=== PATIENT | female | born 1955 | race Caucasian/White ===

== ENCOUNTER 2017-03-04 20:02 | Emergency (ER) | payer OTHER ==
[2017-03-04 20:21] VITALS: BP 153/80
--- NOTE | 2017-03-04 21:33 | EDM.PDOC ---
ED HPI GENERAL MEDICAL PROBLEM - General Chief Complaint: Lower Extremity Injury/Pain Stated Complaint: LEFT KNEE PAIN Time Seen by Provider: 03/04/17 20:43 Source of Information: Reports: Patient History Limitations: Reports: No Limitations - History of Present Illness INITIAL COMMENTS - FREE TEXT/NARRATIVE: 61-year-old female presents for evaluation treatment of swelling, increased warmth and pain to her left lower leg. She reports pain from her knee to her toes. She states that the symptoms started today. She reports yesterday she felt she may have been more short of breath then normal. She reports chronic shortness of breath is unsure if she has been experiencing a change in this. Patient is concerned that she may have a blood clot. She denies any recent travel such as long car rides or airplane rides. Current symptoms include swelling to the left lower leg, increased warmth and pain to the left lower leg. She reports the painful area is to the anterior left knee. Denies any chest pain, numbness or tingling to the left lower leg. No history of DVT or PEs. No new trauma to the left leg. Onset: Today (pain, swelling and redness to the left lower leg), Other ( yesterday unsure if shortness of breath worsened) Location: Reports: Lower Extremity, Left Left Knee Pain Score (Numeric/FACES): 9 - Related Data Allergies Allergy/AdvReac Type Severity Reaction Status Date / Time aspirin Allergy Unknown Cannot Verified 08/14/15 01:06 Remember codeine Allergy Unknown Cannot Verified 08/14/15 01:06 Remember latex Allergy Unknown Cannot Verified 08/14/15 01:06 Remember Penicillins Allergy Unknown Cannot Verified 08/14/15 01:06 Remember Sulfa (Sulfonamide Allergy Unknown Cannot Verified 08/14/15 01:06 Antibiotics) Remember omeprazole [From Prilosec] Allergy Anaphylactic Verified 08/14/15 01:06 Shock omeprazole magnesium Allergy Anaphylactic Verified 08/14/15 01:06 [From Prilosec] Shock venom-honey bee Allergy Anaphylactic Verified 08/14/15 01:06 [bee venom (honey bee)] Shock procaine HCl [From Novocain] AdvReac Nausea and Verified 08/14/15 01:06 Vomiting molds Allergy Unknown Cannot Uncoded 07/30/14 20:40 Remember downy Allergy Other Uncoded 08/14/15 01:06 Home Meds: Home Meds Montelukast [Singulair] 10 mg PO BEDTIME 11/04/14 [History] Albuterol Sulfate [Albuterol Sulfate HFA] 1 puff INH ASDIRECTED PRN 06/05/15 [ History] Furosemide [Lasix] 1 tab PO DAILY PRN 06/05/15 [History] Ranitidine [Zantac] 150 mg PO BID #60 tab 06/06/15 [Rx] atorvaSTATin [Lipitor] 20 mg PO BEDTIME 03/04/17 [History] cycloSPORINE [Restasis] 1 drop EYEBOTH BID 03/04/17 [History] Past Medical History Other Cardiovascular History: PDA closure at 18 mo of age Other Gastrointestinal History: Hx. 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 Social & Family History - Tobacco Use Smoking Status *Q: Unknown Ever Smoked Used Tobacco, but Quit: Yes Month Tobacco Last Used: 1981 Second Hand Smoke Exposure: No - Alcohol Use Days Per Week of Alcohol Use: 0 - Recreational Drug Use Recreational Drug Use: No Review of Systems - Review of Systems Review Of Systems: See Below Respiratory: Denies: Shortness of Breath (reports chronic shortness of breath, she is unsure if it is worse than normal) Cardiovascular: Denies: Chest Pain Musculoskeletal: Reports: Leg Pain (left), Other (reports swellling to the left lower leg) Skin: Reports: Erythema (left lower leg) Neurological: Denies: Numbness, Tingling ED EXAM, GENERAL - Physical Exam Exam: See Below Exam Limited By: No Limitations General Appearance: Alert, WD/WN, No Apparent Distress, Obese Respiratory/Chest: No Respiratory Distress, Lungs Clear, Normal Breath Sounds Cardiovascular: Normal Peripheral Pulses, Regular Rate, Rhythm, No Murmur Extremities: Normal Inspection, Normal Range of Motion, Limited Range of Motion (able to flex the left knee to about 90 degrees but unable to further flex due to pain; able to extend to abouit 160 degrees but unable to fully extend due to pain), Other (no swelling to the left lower leg appreciated). No: Joint Swelling, Oksana's Sign, Increased Warmth, Redness Neurological: Alert, Oriented, Normal Cognition Psychiatric: Normal Affect, Normal Mood Skin Exam: Warm, Dry, Normal Color Course - Vital Signs Last Recorded V/S: Last Vital Signs Temp 36.4 C 03/04/17 20:20 Pulse 82 03/04/17 20:20 Resp 18 03/04/17 20:20 BP 153/80 H 03/04/17 20:20 Pulse Ox 97 03/04/17 20:20 - Orders/Labs/Meds Labs: Laboratory Tests 03/04/17 03/04/17 03/04/17 Range/Units 21:45 21:45 21:45 WBC 7.60 (3.98-10.04) K/mm3 RBC 5.35 H (3.98-5.22) M/mm3 Hgb 15.0 (11.2-15.7) gm/L Hct 47.1 H (34.1-44.9) % MCV 88.0 (79.4-94.8) fl MCH 28.0 (25.6-32.2) pg MCHC 31.8 L (32.2-35.5) g/dl RDW Std Deviation 47.5 H (36.4-46.3) fL Plt Count 291 (182-369) K/mm3 MPV 9.6 (9.4-12.3) fl Neut % (Auto) 64.6 (34.0-71.1) % Lymph % (Auto) 23.3 (19.3-51.7) % Villalba % (Auto) 8.7 (4.7-12.5) % Eos % (Auto) 2.5 (0.7-5.8) Baso % (Auto) 0.8 (0.1-1.2) % Neut # (Auto) 4.91 (1.56-6.13) K/mm3 Lymph # (Auto) 1.77 (1.18-3.74) K/mm3 Villalba # (Auto) 0.66 H (0.24-0.36) K/mm3 Eos # (Auto) 0.19 (0.04-0.36) K/mm3 Baso # (Auto) 0.06 (0.01-0.08) K/mm3 PT 10.5 (8.0-13.0) SECONDS INR 0.97 Sodium 136 (136-145) mEq/L Potassium 4.0 (3.5-5.1) mEq/L Chloride 100 (98-107) mEq/L Carbon Dioxide 27 (21-32) mEq/L Anion Gap 13.0 (5-15) BUN 13 (7-18) mg/dL Creatinine 1.1 H (0.55-1.02) mg/dL Est Cr Clr Drug Dosing 58.08 mL/min Estimated GFR (MDRD) 50 (>60) mL/min BUN/Creatinine Ratio 11.8 L (14-18) Glucose 140 H (80-115) mg/dL Calcium 9.3 (8.5-10.1) mg/dL C-Reactive Protein (<1.0) mg/dL 03/04/17 Range/Units 21:45 WBC (3.98-10.04) K/mm3 RBC (3.98-5.22) M/mm3 Hgb (11.2-15.7) gm/L Hct (34.1-44.9) % MCV (79.4-94.8) fl MCH (25.6-32.2) pg MCHC (32.2-35.5) g/dl RDW Std Deviation (36.4-46.3) fL Plt Count (182-369) K/mm3 MPV (9.4-12.3) fl Neut % (Auto) (34.0-71.1) % Lymph % (Auto) (19.3-51.7) % Villalba % (Auto) (4.7-12.5) % Eos % (Auto) (0.7-5.8) Baso % (Auto) (0.1-1.2) % Neut # (Auto) (1.56-6.13) K/mm3 Lymph # (Auto) (1.18-3.74) K/mm3 Villalba # (Auto) (0.24-0.36) K/mm3 Eos # (Auto) (0.04-0.36) K/mm3 Baso # (Auto) (0.01-0.08) K/mm3 PT (8.0-13.0) SECONDS INR Sodium (136-145) mEq/L Potassium (3.5-5.1) mEq/L Chloride (98-107) mEq/L Carbon Dioxide (21-32) mEq/L Anion Gap (5-15) BUN (7-18) mg/dL Creatinine (0.55-1.02) mg/dL Est Cr Clr Drug Dosing mL/min Estimated GFR (MDRD) (>60) mL/min BUN/Creatinine Ratio (14-18) Glucose (80-115) mg/dL Calcium (8.5-10.1) mg/dL C-Reactive Protein 1.8 H* (<1.0) mg/dL Meds: Medications Discontinued Medications Generic Name Dose Route Start Last Admin Trade Name Deborah PRN Reason Stop Dose Admin Acetaminophen 650 mg 03/04/17 23:20 03/04/17 23:25 Tylenol PO 03/04/17 23:21 650 mg NOW ONE Administration - Radiology Interpretation Free Text/Narrative:: xray of the left knee shows slight medial joint space narrowing, no acute fractures ultrasound of the left lower extremity impression per [facility]: No DVT, Collection of fluid in the anterior knee 1.32x0.65x0.59 cm. No definite wall. But hematoma and infection cannot be rule out. - Re-Assessments/Exams Free Text/Narrative Re-Assessment/Exam: 03/04/17 22:00 I'm unable to appreciate any erythema, increased warmth or swelling to the left lower leg.I Feel it is unlikely that she has a DVT, however, the patient is very concerned about this therefore we will go ahead and order an ultrasound of the left lower leg. I feel her pain is more likely due to arthritis in her knee. X-ray of the knee ordered. 03/04/17 23:09 Labs returned. WBC is 7.60, hgb is 15.0 and plts are 291 pt is 10.5, INR is 0.97 sodium is 136, potassium is 4.0 and chloride is 100. Glucose is 140. I reviewed the labs, ultrasound and x-ray results with the patient and her . Patient reports that the pain is increasing and now requests some Tylenol. Tylenol 650mg PO ordered. She has been using a cane and has been able to get around well with a cane. I recommend she ice and elevate the leg. She should follow up with orthopedics. [id number] Tylenol or Motrin as a for pain relief. I feel that her pain is most likely due to arthritis in her knee. She may require something like a steroid injection. Discharge instructions as documented. Departure - Departure Time of Disposition: 23:22 Disposition: Home, Self-Care 01 Condition: Fair Clinical Impression: Joint effusion of knee - Discharge Information Instructions: Knee Effusion, [id number] Referrals: Sheridan Ortega NP [Primary Care Provider] - Angel Pan PA-C [Ordering Only Provider] - Forms: ED Department Discharge Additional Instructions: [id number] Tylenol or Motrin as needed for pain relief. Use your cane. follow-up with orthopedics in 1-2 weeks. Ice the knee 3-4 times a day for 10-15 minutes. Elevate the knee. Please return to the ER if your symptoms change or worsen.
[2017-03-04] MEDS ORDERED: Acetaminophen 325 MG Tab PO ONE (23:20)
--- NOTE | 2017-03-05 07:49 | CR ---
Left knee: Four views of the left knee were obtained. No joint effusion is seen. Minimal medial joint space narrowing is noted. Lateral joint space is preserved. No acute fracture or other bony abnormality is seen. Impression: 1. Slight joint space narrowing within the medial joint. 2. Nothing acute is appreciated on left knee study. Diagnostic code #2
--- NOTE | 2017-03-05 07:49 | US ---
Left lower extremity deep venous ultrasound: Duplex and color flow imaging was obtained of the left common femoral, superficial femoral, proximal greater saphenous, popliteal, posterior tibial and peroneal veins. Right common femoral vein was also evaluated. Findings: Slight soft tissue edema is noted around the ankle. Hypoechoic areas are noted within the anterior knee described as area of pain presumably due to small amount of fluid/swelling, difficult to exclude infection or even small areas of hematoma if patient has had prior trauma. Veins show normal phasic flow, augmentation and compression. Impression: 1. Slight fluid collections as described above. 2. No findings of deep venous thrombosis are seen within the left lower extremity or right common femoral vein. Diagnostic code #3 I agree with preliminary report issued by [facility] ([facility] preliminary report dictated on 03/05/17, 12:00 AM Central Time)
== END 2017-03-04 23:30 | disposition home or self-care (01) ==
LOC: JD.ED 20:02
DX: M25.462 Effusion, left knee (principal); Z91.040 Latex allergy status; Z88.0 Allergy status to penicillin; Z88.2 Allergy status to sulfonamides; Z88.8 Allergy status to other drugs, medicaments and biological substances
CPT/HCPCS: 36415; 73562; 80048; 85025; 85610; 86140; 93971; 99284; A9270; 99283

== ENCOUNTER 2019-01-21 22:05 | Inpatient (IN) | payer MEDICARE, OTHER ==
--- NOTE | 2019-01-21 22:43 | EDM.PDOC ---
ED HPI GENERAL MEDICAL PROBLEM - General Chief Complaint: Gastrointestinal Problem Stated Complaint: VOMITING Time Seen by Provider: 01/21/19 22:37 - History of Present Illness INITIAL COMMENTS - FREE TEXT/NARRATIVE: 63-year-old female presents emergency room with nausea vomiting and abdominal pain. She thinks she started yesterday after he h she's had pretty significant nausea and vomiting since that time she cannot even keep water down at this point. She' s got a past medical history of some heart problemse. She thinks it started after eating at [employer] now she's vomited up some bilious material. She has some significant abdominal discomfort with this Abdomen Pain Score (Numeric/FACES): 10 - Related Data Allergies Allergy/AdvReac Type Severity Reaction Status Date / Time aspirin Allergy Unknown Cannot Verified 01/21/19 22:17 Remember codeine Allergy Unknown Cannot Verified 01/21/19 22:17 Remember latex Allergy Unknown Cannot Verified 01/21/19 22:17 Remember Penicillins Allergy Unknown Cannot Verified 01/21/19 22:17 Remember Sulfa (Sulfonamide Allergy Unknown Cannot Verified 01/21/19 22:17 Antibiotics) Remember venom-honey bee Allergy Anaphylactic Verified 01/21/19 22:17 [bee venom (honey bee)] Shock procaine HCl [From Novocain] AdvReac Nausea and Verified 01/21/19 22:17 Vomiting molds Allergy Unknown Cannot Uncoded 01/21/19 22:17 Remember downy Allergy Other Uncoded 01/21/19 22:17 Home Meds: Home Meds Montelukast [Singulair] 10 mg PO BEDTIME 11/04/14 [History] Albuterol Sulfate [Albuterol Sulfate HFA] 2 puff INH ASDIRECTED PRN 06/05/15 [ History] Furosemide [Lasix] 20 tab PO DAILY 06/05/15 [History] atorvaSTATin [Lipitor] 10 mg PO BEDTIME 03/04/17 [History] Budesonide/Formoterol [Symbicort 160-4.5 MCG] 2 puff INH BID 01/21/19 [History] Cholecalciferol (Vitamin D3) [D3-2000] 2,000 units PO DAILY 01/21/19 [History] Past Medical History Other Cardiovascular History: PDA closure at 18 mo of age Other Gastrointestinal History: Hx. 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 Denies: Constipation, Diarrhea : Reports: No Symptoms Musculoskeletal: Reports: No Symptoms Skin: Reports: No Symptoms Neurological: Reports: No Symptoms Psychiatric: Reports: No Symptoms ED EXAM, GI/ABD - Physical Exam Exam: See Below Exam Limited By: No Limitations General Appearance: Alert, No Apparent Distress Ears: Normal External Exam, Normal Canal, Hearing Grossly Normal Nose: Normal Inspection, Normal Mucosa, No Blood Head: Atraumatic, Normocephalic Neck: Normal Inspection, Supple, Non-Tender, Full Range of Motion Respiratory/Chest: No Respiratory Distress, Lungs Clear, Normal Breath Sounds Cardiovascular: Regular Rate, Rhythm, No Edema, No Murmur GI/Abdominal Exam: Normal Bowel Sounds, Soft, Other (She has vague tenderness all over no rigidity rebound or guarding) (Female) Exam: Normal External Exam, Normal Speculum Exam, Normal Bimanual Exam Back Exam: Normal Inspection, Full Range of Motion. No: CVA Tenderness (L), Paraspinal Tenderness Psychiatric: Normal Affect, Normal Mood Course - Vital Signs Last Recorded V/S: Last Vital Signs Temp 36.3 C 01/21/19 22:12 Pulse 106 H 01/21/19 22:12 Resp 20 01/21/19 22:12 BP 141/68 H 01/21/19 22:12 Pulse Ox 91 L 01/21/19 22:12 - Orders/Labs/Meds Orders: Active Orders 24 hr Category Date Time Status EKG Documentation Completion [RC] STAT Care 01/21/19 22:43 Active Abdomen 2V AP Flat Upright [CR] Stat Exams 01/21/19 22:43 Stop Req Abdomen Pelvis w Cont [CT] Stat Exams 01/22/19 01:02 Taken Abdomen Series w Chest 1V [CR] Stat Exams 01/21/19 22:50 Taken Chest 1V Frontal [CR] Stat Exams 01/21/19 22:44 Stop Req Lactated Ringers [Ringers, Lactated] 1,000 ml Med 01/21/19 23:00 Active IV ASDIRECTED Medication Orders Lactated Ringer's (Ringers, Lactated) 1,000 mls @ 125 mls/hr IV ASDIRECTED MOISES Last Admin: 01/22/19 00:14 Dose: 125 mls/hr Labs: Laboratory Tests 01/21/19 01/21/19 01/21/19 Range/Units 23:00 23:00 23:00 WBC 15.94 H (3.98-10.04) K/mm3 RBC 6.10 H (3.98-5.22) M/mm3 Hgb 17.1 H D (11.2-15.7) gm/L Hct 53.8 H (34.1-44.9) % MCV 88.2 (79.4-94.8) fl MCH 28.0 (25.6-32.2) pg MCHC 31.8 L (32.2-35.5) g/dl RDW Std Deviation 48.3 H (36.4-46.3) fL Plt Count 286 (182-369) K/mm3 MPV 9.5 (9.4-12.3) fl Neutrophils % (Manual) 82 H (40-60) % Band Neutrophils % 5 (0-10) % Lymphocytes % (Manual) 8 L (20-40) % Atypical Lymphs % 0 % Monocytes % (Manual) 5 (2-10) % Eosinophils % (Manual) 0 L (0.7-5.8) % Basophils % (Manual) 0 L (0.1-1.2) Toxic Granulation 1+ slight Platelet Estimate Adequate Plt Morphology Comment Normal Hypochromasia 1+ slight Anisocytosis 1+ slight RBC Morph Comment Not Reportable PT 11.8 (9.5-12.1) SECONDS INR 1.08 APTT 30 (24-31) SECONDS Sodium 138 (136-145) mEq/L Potassium 4.3 (3.5-5.1) mEq/L Chloride 102 (98-107) mEq/L Carbon Dioxide 28 (21-32) mEq/L Anion Gap 12.3 (5-15) BUN 23 H (7-18) mg/dL Creatinine 1.5 H (0.55-1.02) mg/dL Est Cr Clr Drug Dosing 41.51 mL/min Estimated GFR (MDRD) 35 (>60) mL/min BUN/Creatinine Ratio 15.3 (14-18) Glucose 156 H (80-115) mg/dL Calcium 9.4 (8.5-10.1) mg/dL Total Bilirubin 1.2 H (0.2-1.0) mg/dL Direct Bilirubin (0.0-0.2) mg/dl GGT (5-55) U/L AST 69 H (15-37) U/L ALT 87 H (14-59) U/L Alkaline Phosphatase 172 H (46-116) U/L Troponin I < 0.017 (0.00-0.056) ng/mL Total Protein 7.8 (6.4-8.2) g/dl Albumin 3.3 L (3.4-5.0) g/dl Globulin 4.5 gm/dL Albumin/Globulin Ratio 0.7 L (1-2) Lipase (73-393) U/L Urine Color (Yellow) Urine Appearance (Clear) Urine pH (5.0-8.0) Ur Specific Chester (1.005-1.030) Urine Protein (Negative) Urine Glucose (UA) (Negative) Urine Ketones (Negative) Urine Occult Blood (Negative) Urine Nitrite (Negative) Urine Bilirubin (Negative) Urine Urobilinogen (0.2-1.0) Ur Leukocyte Esterase (Negative) Urine RBC (0-5) /hpf Urine WBC (0-5) /hpf Ur Squamous Epith Cells (0-5) /hpf Amorphous Sediment (NOT SEEN) /hpf Urine Bacteria (FEW) /hpf Hyaline Casts (0-5) /lpf Urine Mucus (FEW) /hpf 01/21/19 01/21/19 01/22/19 Range/Units 23:00 23:04 01:29 WBC (3.98-10.04) K/mm3 RBC (3.98-5.22) M/mm3 Hgb (11.2-15.7) gm/L Hct (34.1-44.9) % MCV (79.4-94.8) fl MCH (25.6-32.2) pg MCHC (32.2-35.5) g/dl RDW Std Deviation (36.4-46.3) fL Plt Count (182-369) K/mm3 MPV (9.4-12.3) fl Neutrophils % (Manual) (40-60) % Band Neutrophils % (0-10) % Lymphocytes % (Manual) (20-40) % Atypical Lymphs % % Monocytes % (Manual) (2-10) % Eosinophils % (Manual) (0.7-5.8) % Basophils % (Manual) (0.1-1.2) Toxic Granulation Platelet Estimate Plt Morphology Comment Hypochromasia Anisocytosis RBC Morph Comment PT (9.5-12.1) SECONDS INR APTT (24-31) SECONDS Sodium (136-145) mEq/L Potassium (3.5-5.1) mEq/L Chloride (98-107) mEq/L Carbon Dioxide (21-32) mEq/L Anion Gap (5-15) BUN (7-18) mg/dL Creatinine (0.55-1.02) mg/dL Est Cr Clr Drug Dosing mL/min Estimated GFR (MDRD) (>60) mL/min BUN/Creatinine Ratio (14-18) Glucose (80-115) mg/dL Calcium (8.5-10.1) mg/dL Total Bilirubin (0.2-1.0) mg/dL Direct Bilirubin 0.30 H (0.0-0.2) mg/dl GGT 193 H (5-55) U/L AST (15-37) U/L ALT (14-59) U/L Alkaline Phosphatase (46-116) U/L Troponin I (0.00-0.056) ng/mL Total Protein (6.4-8.2) g/dl Albumin (3.4-5.0) g/dl Globulin gm/dL Albumin/Globulin Ratio (1-2) Lipase 9602 H (73-393) U/L Urine Color Dark yellow (Yellow) Urine Appearance Slt cloudy H (Clear) Urine pH 5.5 (5.0-8.0) Ur Specific [place] > or = 1.030 (1.005-1.030) Urine Protein 2+ H (Negative) Urine Glucose (UA) Negative (Negative) Urine Ketones Trace H (Negative) Urine Occult Blood Negative (Negative) Urine Nitrite Negative (Negative) Urine Bilirubin 1+ H (Negative) Urine Urobilinogen 0.2 (0.2-1.0) Ur Leukocyte Esterase Negative (Negative) Urine RBC 0-5 (0-5) /hpf Urine WBC 0-5 (0-5) /hpf Ur Squamous Epith Cells 10-20 H (0-5) /hpf Amorphous Sediment Moderate H (NOT SEEN) /hpf Urine Bacteria Many H (FEW) /hpf Hyaline Casts 5-10 H (0-5) /lpf Urine Mucus Many H (FEW) /hpf Meds: Medications Generic Name Dose Route Start Last Admin Trade Name Freq PRN Reason Stop Dose Admin Lactated Ringer's 1,000 mls @ 125 mls/hr 01/21/19 23:00 01/22/19 00:14 Ringers, Lactated IV 125 mls/hr ASDIRECTED MOISES Administration Discontinued Medications Generic Name Dose Route Start Last Admin Trade Name Freq PRN Reason Stop Dose Admin Fentanyl 50 mcg 01/22/19 01:30 01/22/19 01:42 Sublimaze IVPUSH 01/22/19 01:31 50 mcg ONETIME ONE Administration Lactated Ringer's 1,000 mls @ 999 mls/hr 01/21/19 22:44 01/21/19 23:01 Ringers, Lactated IV 01/21/19 23:44 999 mls/hr .BOLUS ONE Administration Iohexol 75 ml 01/22/19 01:57 Omnipaque IVPUSH 01/22/19 01:58 ONETIME ONE Ondansetron HCl 4 mg 01/21/19 22:44 01/21/19 23:01 Zofran IVPUSH 01/21/19 22:45 4 mg ONETIME ONE Administration - Re-Assessments/Exams Free Text/Narrative Re-Assessment/Exam: 01/22/19 03:52 Patient was examined concerns of upper abdominal discomfort. Labs were obtained which are suspicious for pancreatitis with a lipase of just under 10,000 added a direct bili and GGT to my lab work. Obtain CT of the abdomen pelvis which was strongly suggestive of acute pancreatitis and biliary structures look normal with the limitations from a CT. Case discussed with Dr. Abdi on-call hospitalist who kindly accepted the patient the patient will be placed on IV fluids pain management nothing by mouth and will get a gallbladder ultrasound in the morning. Departure - Departure Time of Disposition: 03:53 Disposition: Admitted As Inpatient 66 Clinical Impression: Pancreatitis - Discharge Information Referrals: Israel Wall Jr, MD [Primary Care Provider] - Forms: ED Department Discharge - My Orders Last 24 Hours: My Active Orders 01/21/19 22:43 EKG Documentation Completion [RC] STAT Abdomen 2V AP Flat Upright [CR] Stat 01/21/19 22:44 Chest 1V Frontal [CR] Stat 01/21/19 22:50 Abdomen Series w Chest 1V [CR] Stat 01/21/19 23:00 Lactated Ringers [Ringers, Lactated] 1,000 ml IV ASDIRECTED 01/22/19 01:02 Abdomen Pelvis w Cont [CT] Stat - Assessment/Plan Last 24 Hours: My Active Orders 01/21/19 22:43 EKG Documentation Completion [RC] STAT Abdomen 2V AP Flat Upright [CR] Stat 01/21/19 22:44 Chest 1V Frontal [CR] Stat 01/21/19 22:50 Abdomen Series w Chest 1V [CR] Stat 01/21/19 23:00 Lactated Ringers [Ringers, Lactated] 1,000 ml IV ASDIRECTED 01/22/19 01:02 Abdomen Pelvis w Cont [CT] Stat
[2019-01-21] MEDS ORDERED: Lactated Ringers 1,000 ML IV ONE (22:44)
[2019-01-21] MEDS ORDERED: Ondansetron 4 MG/2 ML SDV IVPUSH ONE (22:44)
[2019-01-21] MEDS ORDERED: Lactated Ringers 1,000 ML IV SCH (23:00)
[2019-01-22] MEDS ORDERED: fentaNYL 100 MCG/2 ML SDV IVPUSH ONE (01:30)
[2019-01-22] MEDS ORDERED: Iohexol 350 MG/ML 75 ML Bottle IVPUSH ONE (01:57)
[2019-01-22] MEDS ORDERED: Ondansetron 4 MG/2 ML SDV IVPUSH PRN ×2 (05:42→11:47)
[2019-01-22] MEDS: Lactated Ringers 1,000 ML IV SCH ×3 (06:42→23:39)
--- NOTE | 2019-01-22 08:41 | CR ---
Abdominal series: Supine and upright views of the abdomen were obtained as well as frontal view of the chest. Comparison: Prior chest x-ray of 08/14/15, no previous abdominal x-ray. Atelectasis is seen within both lung bases. Heart size does not appear enlarged. Tortuous thoracic aorta is noted. No free air is seen. Small bowel gas appears slightly prominent within the mid abdomen. Bowel gas pattern is otherwise unremarkable. Bony structures are within normal limits for the patient's age. No free air is seen. No abnormal calcifications are seen. Impression: 1. Mild bibasilar atelectasis. 2. Slightly prominent small bowel within the midabdomen is likely representing small bowel ileus secondary to pancreatitis as seen on subsequent CT exam. 3. No additional abnormality is seen. Diagnostic code #3
--- NOTE | 2019-01-22 08:41 | CT ---
CT abdomen and pelvis Technique: Multiple axial sections were obtained from above the dome of diaphragm inferiorly through the pubic symphysis. Intravenous contrast was utilized. No oral contrast has been given. Comparison: No prior abdominal imaging is available. Findings: Small portion of the lung bases shows mild areas of atelectasis. Liver shows mild fatty infiltration without focal abnormality. Spleen appears within normal limits. Low density finding is noted off the posterior upper right kidney measuring 1.2 cm which has slight increased Hounsfield unit measurements for a cyst. Two low density findings are noted off the upper left kidney which have Hounsfield unit measurements of cysts with largest measuring 1.7 cm. Multiple other cysts are seen more inferiorly within both kidneys. Contrast is noted within both ureters on delayed images. Adrenal glands show no nodule. Inflammatory change noted around the pancreas. Pancreatic head shows some edema. These findings are compatible with pancreatitis. Aorta shows slight atherosclerotic change without aneurysm. No retroperitoneal adenopathy is seen. Fat-containing umbilical hernia is noted. There is a moderate amount of free fluid within the pelvis most likely reactive from the pancreatitis. No pelvic mass or adenopathy is seen. Bone window settings were reviewed which show mild spondylolisthesis at L4-L5 due to degenerative apophyseal change. Diffuse fusion is seen within multiple lower thoracic vertebral bodies. Impression: 1. Inflammatory change around the pancreas as well as edematous pancreatic head. These findings are compatible with pancreatitis. 2. Fluid within the pelvis most likely reactive from the pancreatitis. 3. Small abnormality within the upper right kidney most likely representing small hemorrhagic cysts. Other simple cysts seen within both kidneys. 4. Other incidental findings. Diagnostic code #3 I agree with preliminary report from [facility], finalized on 01/22/19, 4:01 AM Central Time
[2019-01-22] MEDS: HYDROmorphone 1 MG/ML Syringe IVPUSH PRN ×4 (09:39→21:59)
--- NOTE | 2019-01-22 09:45 | PCM.HP ---
H&P History of Present Illness - General Date of Service: 01/22/19 Admit Problem/Dx: Admission Diagnosis/Problem Admission Diagnosis/Problem Pancreatitis Source of Information: Patient - History of Present Illness Initial Comments - Free Text/Narative: Patient present to the emergency room last night at approximately 1800 secondary to a 1 day history of nausea, vomiting, and epigastric abdominal pain. Patient states that she went to [facility] on Friday at 1530 and directly after that she started vomiting and had abdominal pain. Patient states it's in the epigastrium and continued all night. Yesterday she went into the walk-in clinic where they gave her "some pills" which did not help. She has been unable to keep down fluids or food. Patient then presented to the emergency room. Patient states that 3-4 years ago she had an MRI, but denies any cardiac stents or heart surgery. ALAN Irby is her primary care provider. Patient does not know when her last bowel movement was. She denies any hematemesis or hemoptysis. She denies any diarrhea. He has never had a keratitis in the past. She rarely drinks alcohol and has not drunk alcohol recently. She stopped smoking 40 years ago.Patient denies fever or chills. In the emergency room her temperature was 36.3. She received 1 L of fluids, nausea and pain medication. CT of the abdomen showed fatty liver, changes consistent with pancreatitis, and multiple renal cysts. Abdominal x-ray showed slightly prominent small bowel within the mid abdomen is likely representing small bowel ileus secondary to pancreatitis as seen on subsequent CT exam. Mild bilateral atelectasis. Abdomen Pain Score (Numeric/FACES): 10 - Related Data Allergies/Adverse Reactions: Allergies Allergy/AdvReac Type Severity Reaction Status Date / Time aspirin Allergy Unknown Cannot Verified 01/22/19 05:15 Remember codeine Allergy Unknown Cannot Verified 01/22/19 05:15 Remember latex Allergy Unknown Cannot Verified 01/22/19 05:15 Remember Penicillins Allergy Unknown Cannot Verified 01/22/19 05:15 Remember Sulfa (Sulfonamide Allergy Unknown Cannot Verified 01/22/19 05:15 Antibiotics) Remember venom-honey bee Allergy Anaphylactic Verified 01/22/19 05:15 [bee venom (honey bee)] Shock procaine HCl [From Novocain] AdvReac Nausea and Verified 01/22/19 05:15 Vomiting molds Allergy Unknown Cannot Uncoded 01/21/19 22:17 Remember downy Allergy Other Uncoded 01/21/19 22:17 Home Medications: Home Meds Montelukast [Singulair] 10 mg PO BEDTIME 11/04/14 [History] Albuterol Sulfate [Albuterol Sulfate HFA] 2 puff INH ASDIRECTED PRN 06/05/15 [ History] Furosemide [Lasix] 20 tab PO DAILY 06/05/15 [History] atorvaSTATin [Lipitor] 10 mg PO BEDTIME 03/04/17 [History] Budesonide/Formoterol [Symbicort 160-4.5 MCG] 2 puff INH BID 01/21/19 [History] Cholecalciferol (Vitamin D3) [D3-2000] 2,000 units PO DAILY 01/21/19 [History] Omeprazole 20 mg PO BIDAC 01/22/19 [History] Ondansetron [Zofran] 4 mg SL Q4HR PRN 01/22/19 [History] Past Medical History Cardiovascular History: Reports: High Cholesterol Other Cardiovascular History: PDA closure at 18 mo of age Respiratory History: Reports: Asthma Gastrointestinal History: Reports: GERD Other Gastrointestinal History: Hx. of Helicobacter pylori Other Oncologic History: hx of benign breast lump. patient states, "she knows she has skin cancer on her back and legs." she has never been diagnosed with this before. 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 Exam - Exam Exam: See Below - Vital Signs Vital Signs: Last Vital Signs Temp 99.1 F 01/22/19 08:44 Pulse 88 01/22/19 08:50 Resp 16 01/22/19 08:44 BP 139/70 01/22/19 08:44 Pulse Ox 94 L 01/22/19 08:50 Weight: 252 lb - Exam General: Alert, Oriented HEENT: Conjunctiva Clear, EACs Clear, Mucosa Moist & [place], Nares Patent, Posterior Pharynx Clear Neck: Supple, Trachea Midline Lungs: Clear to Auscultation, Normal Respiratory Effort Cardiovascular: Regular Rhythm, Tachycardia GI/Abdominal Exam: Normal Bowel Sounds, Guarding, Tender (Diffusely tender, but worse in the epigastrim. ? Myurphy's sign.) Extremities: Normal Inspection, No Pedal Edema, Leg Pain (lower extremity tenderness especially on the left. Significant for stasis dermatitis bilaterally on the distal lower extremities) - Patient Data Lab Results Last 24 hrs: Laboratory Results - last 24 hr 01/21/19 01/21/19 01/21/19 Range/Units 23:00 23:00 23:00 WBC 15.94 H (3.98-10.04) K/mm3 RBC 6.10 H (3.98-5.22) M/mm3 Hgb 17.1 H D (11.2-15.7) gm/L Hct 53.8 H (34.1-44.9) % MCV 88.2 (79.4-94.8) fl MCH 28.0 (25.6-32.2) pg MCHC 31.8 L (32.2-35.5) g/dl RDW Std Deviation 48.3 H (36.4-46.3) fL Plt Count 286 (182-369) K/mm3 MPV 9.5 (9.4-12.3) fl Neut % (Auto) (34.0-71.1) % Lymph % (Auto) (19.3-51.7) % [place] % (Auto) (4.7-12.5) % Eos % (Auto) (0.7-5.8) Baso % (Auto) (0.1-1.2) % Neut # (Auto) (1.56-6.13) K/mm3 Lymph # (Auto) (1.18-3.74) K/mm3 [place] # (Auto) (0.24-0.36) K/mm3 Eos # (Auto) (0.04-0.36) K/mm3 Baso # (Auto) (0.01-0.08) K/mm3 Neutrophils % (Manual) 82 H (40-60) % Band Neutrophils % 5 (0-10) % Lymphocytes % (Manual) 8 L (20-40) % Atypical Lymphs % 0 % Monocytes % (Manual) 5 (2-10) % Eosinophils % (Manual) 0 L (0.7-5.8) % Basophils % (Manual) 0 L (0.1-1.2) Manual Slide Review Toxic Granulation 1+ slight Platelet Estimate Adequate Plt Morphology Comment Normal Hypochromasia 1+ slight Anisocytosis 1+ slight RBC Morph Comment Not Reportable PT 11.8 (9.5-12.1) SECONDS INR 1.08 APTT 30 (24-31) SECONDS Sodium 138 (136-145) mEq/L Potassium 4.3 (3.5-5.1) mEq/L Chloride 102 (98-107) mEq/L Carbon Dioxide 28 (21-32) mEq/L Anion Gap 12.3 (5-15) BUN 23 H (7-18) mg/dL Creatinine 1.5 H (0.55-1.02) mg/dL Est Cr Clr Drug Dosing 41.51 mL/min Estimated GFR (MDRD) 35 (>60) mL/min BUN/Creatinine Ratio 15.3 (14-18) Glucose 156 H (80-115) mg/dL Calcium 9.4 (8.5-10.1) mg/dL Magnesium (1.8-2.4) mg/dl Total Bilirubin 1.2 H (0.2-1.0) mg/dL Direct Bilirubin (0.0-0.2) mg/dl Indirect Bilirubin GGT (5-55) U/L AST 69 H (15-37) U/L ALT 87 H (14-59) U/L Alkaline Phosphatase 172 H (46-116) U/L Troponin I < 0.017 (0.00-0.056) ng/mL Total Protein 7.8 (6.4-8.2) g/dl Albumin 3.3 L (3.4-5.0) g/dl Globulin 4.5 gm/dL Albumin/Globulin Ratio 0.7 L (1-2) Lipase (73-393) U/L Urine Color (Yellow) Urine Appearance (Clear) Urine pH (5.0-8.0) Ur Specific [place] (1.005-1.030) Urine Protein (Negative) Urine Glucose (UA) (Negative) Urine Ketones (Negative) Urine Occult Blood (Negative) Urine Nitrite (Negative) Urine Bilirubin (Negative) Urine Urobilinogen (0.2-1.0) Ur Leukocyte Esterase (Negative) Urine RBC (0-5) /hpf Urine WBC (0-5) /hpf Ur Squamous Epith Cells (0-5) /hpf Amorphous Sediment (NOT SEEN) /hpf Urine Bacteria (FEW) /hpf Hyaline Casts (0-5) /lpf Urine Mucus (FEW) /hpf 01/21/19 01/21/19 01/22/19 Range/Units 23:00 23:04 01:29 WBC (3.98-10.04) K/mm3 RBC (3.98-5.22) M/mm3 Hgb (11.2-15.7) gm/L Hct (34.1-44.9) % MCV (79.4-94.8) fl MCH (25.6-32.2) pg MCHC (32.2-35.5) g/dl RDW Std Deviation (36.4-46.3) fL Plt Count (182-369) K/mm3 MPV (9.4-12.3) fl Neut % (Auto) (34.0-71.1) % Lymph % (Auto) (19.3-51.7) % [place] % (Auto) (4.7-12.5) % Eos % (Auto) (0.7-5.8) Baso % (Auto) (0.1-1.2) % Neut # (Auto) (1.56-6.13) K/mm3 Lymph # (Auto) (1.18-3.74) K/mm3 [place] # (Auto) (0.24-0.36) K/mm3 Eos # (Auto) (0.04-0.36) K/mm3 Baso # (Auto) (0.01-0.08) K/mm3 Neutrophils % (Manual) (40-60) % Band Neutrophils % (0-10) % Lymphocytes % (Manual) (20-40) % Atypical Lymphs % % Monocytes % (Manual) (2-10) % Eosinophils % (Manual) (0.7-5.8) % Basophils % (Manual) (0.1-1.2) Manual Slide Review Toxic Granulation Platelet Estimate Plt Morphology Comment Hypochromasia Anisocytosis RBC Morph Comment PT (9.5-12.1) SECONDS INR APTT (24-31) SECONDS Sodium (136-145) mEq/L Potassium (3.5-5.1) mEq/L Chloride (98-107) mEq/L Carbon Dioxide (21-32) mEq/L Anion Gap (5-15) BUN (7-18) mg/dL Creatinine (0.55-1.02) mg/dL Est Cr Clr Drug Dosing mL/min Estimated GFR (MDRD) (>60) mL/min BUN/Creatinine Ratio (14-18) Glucose (80-115) mg/dL Calcium (8.5-10.1) mg/dL Magnesium (1.8-2.4) mg/dl Total Bilirubin (0.2-1.0) mg/dL Direct Bilirubin 0.30 H (0.0-0.2) mg/dl Indirect Bilirubin GGT 193 H (5-55) U/L AST (15-37) U/L ALT (14-59) U/L Alkaline Phosphatase (46-116) U/L Troponin I (0.00-0.056) ng/mL Total Protein (6.4-8.2) g/dl Albumin (3.4-5.0) g/dl Globulin gm/dL Albumin/Globulin Ratio (1-2) Lipase 9602 H (73-393) U/L Urine Color Dark yellow (Yellow) Urine Appearance Slt cloudy H (Clear) Urine pH 5.5 (5.0-8.0) Ur Specific [place] > or = 1.030 (1.005-1.030) Urine Protein 2+ H (Negative) Urine Glucose (UA) Negative (Negative) Urine Ketones Trace H (Negative) Urine Occult Blood Negative (Negative) Urine Nitrite Negative (Negative) Urine Bilirubin 1+ H (Negative) Urine Urobilinogen 0.2 (0.2-1.0) Ur Leukocyte Esterase Negative (Negative) Urine RBC 0-5 (0-5) /hpf Urine WBC 0-5 (0-5) /hpf Ur Squamous Epith Cells 10-20 H (0-5) /hpf Amorphous Sediment Moderate H (NOT SEEN) /hpf Urine Bacteria Many H (FEW) /hpf Hyaline Casts 5-10 H (0-5) /lpf Urine Mucus Many H (FEW) /hpf 01/22/19 01/22/19 01/22/19 Range/Units 08:26 08:26 08:26 WBC 19.30 H (3.98-10.04) K/mm3 RBC 5.57 H (3.98-5.22) M/mm3 Hgb 15.7 (11.2-15.7) gm/L Hct 49.3 H (34.1-44.9) % MCV 88.5 (79.4-94.8) fl MCH 28.2 (25.6-32.2) pg MCHC 31.8 L (32.2-35.5) g/dl RDW Std Deviation 49.1 H (36.4-46.3) fL Plt Count 277 (182-369) K/mm3 MPV 9.7 (9.4-12.3) fl Neut % (Auto) 89.8 H (34.0-71.1) % Lymph % (Auto) 4.6 L (19.3-51.7) % [place] % (Auto) 5.3 (4.7-12.5) % Eos % (Auto) 0 L (0.7-5.8) Baso % (Auto) 0.1 (0.1-1.2) % Neut # (Auto) 17.32 H (1.56-6.13) K/mm3 Lymph # (Auto) 0.89 L (1.18-3.74) K/mm3 [place] # (Auto) 1.03 H (0.24-0.36) K/mm3 Eos # (Auto) 0.00 L (0.04-0.36) K/mm3 Baso # (Auto) 0.02 (0.01-0.08) K/mm3 Neutrophils % (Manual) (40-60) % Band Neutrophils % (0-10) % Lymphocytes % (Manual) (20-40) % Atypical Lymphs % % Monocytes % (Manual) (2-10) % Eosinophils % (Manual) (0.7-5.8) % Basophils % (Manual) (0.1-1.2) Manual Slide Review Abnormal smear Toxic Granulation Platelet Estimate Plt Morphology Comment Hypochromasia Anisocytosis RBC Morph Comment PT (9.5-12.1) SECONDS INR APTT (24-31) SECONDS Sodium 138 (136-145) mEq/L Potassium 4.1 (3.5-5.1) mEq/L Chloride 102 (98-107) mEq/L Carbon Dioxide 26 (21-32) mEq/L Anion Gap 14.1 (5-15) BUN 22 H (7-18) mg/dL Creatinine 1.2 H (0.55-1.02) mg/dL Est Cr Clr Drug Dosing 51.89 mL/min Estimated GFR (MDRD) 45 (>60) mL/min BUN/Creatinine Ratio 18.3 H (14-18) Glucose 137 H (80-115) mg/dL Calcium 8.7 (8.5-10.1) mg/dL Magnesium (1.8-2.4) mg/dl Total Bilirubin 1.4 H (0.2-1.0) mg/dL Direct Bilirubin 0.30 H (0.0-0.2) mg/dl Indirect Bilirubin 1.10 GGT (5-55) U/L AST 50 H (15-37) U/L ALT 67 H (14-59) U/L Alkaline Phosphatase 138 H (46-116) U/L Troponin I < 0.017 (0.00-0.056) ng/mL Total Protein 6.8 (6.4-8.2) g/dl Albumin 2.8 L (3.4-5.0) g/dl Globulin 4.0 gm/dL Albumin/Globulin Ratio 0.7 L (1-2) Lipase (73-393) U/L Urine Color (Yellow) Urine Appearance (Clear) Urine pH (5.0-8.0) Ur Specific [place] (1.005-1.030) Urine Protein (Negative) Urine Glucose (UA) (Negative) Urine Ketones (Negative) Urine Occult Blood (Negative) Urine Nitrite (Negative) Urine Bilirubin (Negative) Urine Urobilinogen (0.2-1.0) Ur Leukocyte Esterase (Negative) Urine RBC (0-5) /hpf Urine WBC (0-5) /hpf Ur Squamous Epith Cells (0-5) /hpf Amorphous Sediment (NOT SEEN) /hpf Urine Bacteria (FEW) /hpf Hyaline Casts (0-5) /lpf Urine Mucus (FEW) /hpf 05//19 Range/Units 08:26 WBC (3.98-10.04) K/mm3 RBC (3.98-5.22) M/mm3 Hgb (11.2-15.7) gm/L Hct (34.1-44.9) % MCV (79.4-94.8) fl MCH (25.6-32.2) pg MCHC (32.2-35.5) g/dl RDW Std Deviation (36.4-46.3) fL Plt Count (182-369) K/mm3 MPV (9.4-12.3) fl Neut % (Auto) (34.0-71.1) % Lymph % (Auto) (19.3-51.7) % [place] % (Auto) (4.7-12.5) % Eos % (Auto) (0.7-5.8) Baso % (Auto) (0.1-1.2) % Neut # (Auto) (1.56-6.13) K/mm3 Lymph # (Auto) (1.18-3.74) K/mm3 [place] # (Auto) (0.24-0.36) K/mm3 Eos # (Auto) (0.04-0.36) K/mm3 Baso # (Auto) (0.01-0.08) K/mm3 Neutrophils % (Manual) (40-60) % Band Neutrophils % (0-10) % Lymphocytes % (Manual) (20-40) % Atypical Lymphs % % Monocytes % (Manual) (2-10) % Eosinophils % (Manual) (0.7-5.8) % Basophils % (Manual) (0.1-1.2) Manual Slide Review Toxic Granulation Platelet Estimate Plt Morphology Comment Hypochromasia Anisocytosis RBC Morph Comment PT (9.5-12.1) SECONDS INR APTT (24-31) SECONDS Sodium (136-145) mEq/L Potassium (3.5-5.1) mEq/L Chloride (98-107) mEq/L Carbon Dioxide (21-32) mEq/L Anion Gap (5-15) BUN (7-18) mg/dL Creatinine (0.55-1.02) mg/dL Est Cr Clr Drug Dosing mL/min Estimated GFR (MDRD) (>60) mL/min BUN/Creatinine Ratio (14-18) Glucose (80-115) mg/dL Calcium (8.5-10.1) mg/dL Magnesium 1.8 (1.8-2.4) mg/dl Total Bilirubin (0.2-1.0) mg/dL Direct Bilirubin (0.0-0.2) mg/dl Indirect Bilirubin GGT (5-55) U/L AST (15-37) U/L ALT (14-59) U/L Alkaline Phosphatase (46-116) U/L Troponin I (0.00-0.056) ng/mL Total Protein (6.4-8.2) g/dl Albumin (3.4-5.0) g/dl Globulin gm/dL Albumin/Globulin Ratio (1-2) Lipase (73-393) U/L Urine Color (Yellow) Urine Appearance (Clear) Urine pH (5.0-8.0) Ur Specific [place] (1.005-1.030) Urine Protein (Negative) Urine Glucose (UA) (Negative) Urine Ketones (Negative) Urine Occult Blood (Negative) Urine Nitrite (Negative) Urine Bilirubin (Negative) Urine Urobilinogen (0.2-1.0) Ur Leukocyte Esterase (Negative) Urine RBC (0-5) /hpf Urine WBC (0-5) /hpf Ur Squamous Epith Cells (0-5) /hpf Amorphous Sediment (NOT SEEN) /hpf Urine Bacteria (FEW) /hpf Hyaline Casts (0-5) /lpf Urine Mucus (FEW) /hpf Result Diagrams: 01/22/19 08:26 01/22/19 08:26 - Problem List (1) Pancreatitis SNOMED Code(s): 44097025 ICD Code: K85.90 - ACUTE PANCREATITIS WITHOUT NECROSIS OR INFECTION, UNSP Status: Acute Current Visit: Yes (2) Acute renal injury SNOMED Code(s): 27426844, 80607423 ICD Code: N17.9 - ACUTE KIDNEY FAILURE, UNSPECIFIED Status: Acute Current Visit: Yes (3) Gall bladder stones SNOMED Code(s): 464158127 ICD Code: K80.20 - CALCULUS OF GALLBLADDER W/O CHOLECYSTITIS W/O OBSTRUCTION Status: Acute Current Visit: Yes Problem List Initiated/Reviewed/Updated: Yes Orders Last 24hrs: Active Orders 24 hr Category Date Time Status Patient Status [ADT] Routine ADT 01/22/19 04:25 Active Antiembolic Devices [RC] 09,21 Care 01/22/19 08:20 Active Up With Assistance [RC] ASDIRECTED Care 01/22/19 05:40 Active NPO Now [Nothing per Oral Now Diet] [DIET] Diet 01/22/19 Breakfast Active Abdomen Ltd [US] Routine Exams 01/22/19 08:00 Ordered HYDROmorphone [Dilaudid] Med 01/22/19 07:44 Active 0.5 - 1 mg IVPUSH Q1H PRN Lactated Ringers [Ringers, Lactated] 1,000 ml Med 01/22/19 05:45 Active IV ASDIRECTED Ondansetron [Zofran] Med 01/22/19 05:42 Active 4 mg IVPUSH Q4HR PRN RADHA Hose [Antiembolic Hose] [OM.PC] Routine Oth 01/22/19 08:20 Ordered Resuscitation Status Routine Resus Stat 01/22/19 05:16 Ordered EKG 12 Lead [EK] Routine Ther 01/22/19 08:15 Ordered Medication Orders Hydromorphone HCl (Dilaudid) 0.5 - 1 mg IVPUSH Q1H PRN PRN Reason: Pain Last Admin: 01/22/19 09:39 Dose: 0.5 mg Lactated Ringer's (Ringers, Lactated) 1,000 mls @ 250 mls/hr IV ASDIRECTED MOISES Last Admin: 01/22/19 06:42 Dose: 250 mls/hr Ondansetron HCl (Zofran) 4 mg IVPUSH Q4HR PRN PRN Reason: Nausea Assessment/Plan Comment:: Acute pancreatitis * Initial white count 15.94 increased to 19.3. Hemoglobin 17.1 decreased to 15.7 with hydration * Initial lipase 9602 * Total bilirubin 1.2 with direct of 0.30 * IV hydration, pain control through a lot of, nothing by mouth * Ultrasound showed stones in the gallbladder but not in the common bile duct * Repeat CBC, CMP in the morning Gallbladder stones * Get MRCP * Consult Dr. Olivera in surgery Chest pain with history of [place] * No acute changes on ECG and troponins are less than 0.017 * Continue to monitor but likely due to vomiting for the last 2 days Acute kidney injury * Creatinine improved overnight with IV hydration. * Continue IV hydration with LR Discharge planning 3-4 days CODE STATUS: Full code
[2019-01-22] MEDS ORDERED: Albuterol 6.7 GM Inhaler INH PRN (11:46)
[2019-01-22] MEDS ORDERED: Magnesium Sulfate/Water 2 GM in Premix Bag 1 BAG IV ONE (12:25)
[2019-01-22] MEDS ORDERED: Lactated Ringers 1,000 ML IV SCH (12:30)
--- NOTE | 2019-01-22 13:47 | US ---
Limited abdominal ultrasound: Multiple real-time images of the upper right abdomen were obtained. Comparison: Prior CT abdomen and pelvis study performed earlier on the same day (2:15 AM). Findings: Liver is echogenic. Small hypoechoic area is seen next to the gallbladder compatible with focal fatty sparing. Gallstones are noted. Gallbladder wall is slightly thickened. Common bile duct measures normal at 6.0 mm. Pancreas is mostly obscured from bowel gas. Inferior vena cava is patent. Portal vein shows normal hepatopedal flow. Impression: 1. Fatty infiltration within the liver with mild focal fatty sparing next to the gallbladder. 2. Gallstones with mild gallbladder wall thickening. No biliary duct dilatation is seen. 3. Pancreas mostly obscured from bowel gas. Diagnostic code #3
--- NOTE | 2019-01-22 16:13 | MR ---
MRI abdomen with MRCP Technique: Various sequences were obtained in axial and coronal planes as well as MRCP. Findings: CHD and CBD as well as visualized intrahepatic ducts appear normal in size. No filling defects are seen to indicate retained stone. Intraluminal defects are seen within the gallbladder which are felt compatible with gallstones. Adrenal glands show no discrete nodule. Numerous cysts are seen within both kidneys. One cyst appears to be hemorrhagic within the upper right kidney. Small amount of ascites is seen around the liver and spleen. Edema is seen around the pancreas and extending inferiorly. No discrete abnormality is seen within the liver or pancreas. Aorta shows no aneurysm. Impression: 1. Edematous change around the pancreas and extending inferiorly. Findings compatible with pancreatitis as seen on recent CT study performed earlier on the same day (2:15 AM). 2. Mild amount of fluid around the liver and spleen compatible with reactive fluid from the pancreatitis. 3. MRCP shows no discrete abnormality other than gallstones. 4. Other incidental findings as noted above. Diagnostic code #3
[2019-01-22] MEDS ORDERED: Levofloxacin 750 MG Tab PO SCH (18:00)
[2019-01-22] MEDS: metroNIDAZOLE/Normal Saline 500 MG in Premix Bag 1 BAG IV SCH (18:16)
[2019-01-22] MEDS: Formoterol/Mometasone 200-5 MCG 8.8 GM Inhaler IH SCH (20:19)
--- NOTE | 2019-01-22 22:08 | CONS ---
CONSULTING PHYSICIAN: Dany Olivera MD DATE OF CONSULTATION: 01/22/2019 REQUESTING PHYSICIAN: Leah Abdi. REASON FOR CONSULTATION: Pancreatitis. HISTORY OF PRESENT ILLNESS: Sandra is a 63-year-old female who says she was eating at [employer] on Friday when she had a sudden onset of nausea with vomiting. This has been associated with abdominal pain. She has had the abdominal pain actually started about 2 weeks ago. The pain is located in the epigastrium. It is dull in character, worsened severely after the beginning of her nausea and vomiting. She has been unable to tolerate anything by mouth. She initially presented to the walk-in clinic and apparently was sent over to the ED for further treatment when her pain did not resolve. She was unaware that she had gallstones. She has never had problems with cholecystitis in the past. Her pain is severe. She has no recent history of alcohol use and has no history of alcoholism per the patient. PRIOR MEDICAL HISTORY: Obesity, history of H. pylori infection, gastroesophageal reflux disease, asthma, anaphylaxis from penicillin. She reports some skin cancers, a benign breast lesion and closure of PDA at 18 months, hypercholesteremia. ALLERGIES TO MEDICATIONS: Aspirin, codeine, latex, penicillin, sulfa, bee venom, procaine, molds, and downy. MEDICATIONS AT HOME: Singulair, albuterol, Lasix, Lipitor, Symbicort, vitamin D3, omeprazole, and Zofran. SURGERIES: She has had a and a patent ductus arteriosus closure, colonoscopy. SOCIAL HISTORY: Is not helpful. Tobacco: She is a former smoker, but she quit quite a while ago. Denies alcohol abuse. Denies illicit drugs. PHYSICAL EXAMINATION: GENERAL: She is a somnolent patient, who is somewhat uncooperative, but I managed to get some history from her. She does not appear toxic, but in some mild painful distress. VITAL SIGNS: Temperature 99.7, pulse 92, respirations 20, blood pressure 136/68, saturating 91% on 2.5 L of nasal cannula oxygen. HEAD AND NECK: Normocephalic, atraumatic. NECK: Supple. Full range of motion. LUNGS: Clear to auscultation bilaterally with some crackles at the bases bilaterally. HEART: Regular rate and rhythm. No clicks, murmurs, or rubs. ABDOMEN: Exquisitely tender in the epigastrium with guarding. She has no rebound tenderness generally, but she does have rebound tenderness over the mid epigastrium. No apparent Stauffer sign. No abdominal hernias are present. EXTREMITIES: No clubbing, cyanosis, or edema. No calf tenderness. INTEGUMENT: No rashes. No lesions. No petechiae. NEUROLOGIC: Cranial nerves are grossly intact. She has a somnolent affect, but does respond to direct questions with apparent linear thought. LABORATORY DATA: I have looked at her labs. She has a leukocytosis of 15,940 on her admission with a left shift that actually worsened today. Her leukocytosis is now 20,000 with worsened left shift. On admission, her lipase was 9600, total bilirubin 1.2, direct bilirubin 0.3, GGT 193, AST 69, ALT 187, alkaline phosphatase 172. Her numbers are marginally better with the exception of her total bilirubin, which is 1.8; alkaline phosphatase is also down to 139. AST and ALT of 39 and 63 respectively. Her C-reactive protein is 26.1. Triglycerides are only 49. IMAGING DATA: I had a look at her ultrasound. She has some mild thickening of the gallbladder wall with stones. Common duct appears normal. CT scan shows an impressive pancreatitis concentrated in the head. In addition, she has some fluid in the pelvis, which would be consistent with a pancreatitis. I had Dr. Abdi order an MRCP, which showed no evidence of acute cholecystitis, but she does have stones. The common duct is unremarkable with no evidence of stones, and of course she has pancreatitis as noted previously without evidence of choledocholithiasis. ASSESSMENT: Gallstone pancreatitis. There is no other obvious cause for her pancreatitis. She does have stones, and her liver profile does suggest passage of stone. PLAN: At some point, I think she would benefit from a cholecystectomy. I have asked Dr. Abdi to start her on Flouroquinolone since she has anaphylaxis to penicillins. Assuming she can tolerate an operation, she should have her gallbladder out before she leaves. If she has worsening evidence of choledocholithiasis biochemically, she probably would benefit from an ERCP either first or after her cholecystectomy. I will be leaving early in the morning. I have given a complete sign-out to Dr. Harris. He is aware of the patient and will follow in the morning. [facility] /[id number]
[2019-01-23] MEDS: metroNIDAZOLE/Normal Saline 500 MG in Premix Bag 1 BAG IV SCH ×3 (01:01→16:43)
[2019-01-23] MEDS: HYDROmorphone 1 MG/ML Syringe IVPUSH PRN ×6 (02:13→17:47)
[2019-01-23] MEDS: Lactated Ringers 1,000 ML IV SCH ×2 (06:12→11:00)
[2019-01-23] MEDS: Formoterol/Mometasone 200-5 MCG 8.8 GM Inhaler IH SCH (09:08)
[2019-01-23] MEDS ORDERED: Pantoprazole 40 MG Vial IVPUSH SCH (09:15)
--- NOTE | 2019-01-23 09:34 | PCM.PN ---
- General Info Date of Service: 01/23/19 Admission Dx/Problem (Free Text): Admission Diagnosis/Problem Admission Diagnosis/Problem Pancreatitis Subjective Update: January 23, 2019 Patient had an uneventful night. She continues to give fluids at 200 mL an hour. Pain has improved since admission. She is having large amount of urine output. She is on 2 L nasal cannula because her oxygen saturations do drop especially after receiving Dilaudid for pain. Patient does have a history of asthma. She continues nothing by mouth. Patient was seen by surgery and he felt that she would need a cholecystectomy prior to discharge. Right upper quadrant ultrasound showed multiple gallstones in the gallbladder. There is mild gallbladder wall thickening. Fatty infiltration within the liver with mild focal fatty sparing next to the gallbladder. MRCP: 1. Edematous change around the pancreas and extending inferiorly. 2. Mild amount of fluid around the liver and spleen compatible with reactive fluid from the pancreatitis. 3. MRCP shows no discrete abnormality other than gallstones. Multiple cysts were also seen in both kidneys. One cyst appears to be hemorrhagic within the upper right kidney. - Review of Systems General: Denies: Fever, Chills HEENT: Reports: No Symptoms Pulmonary: Denies: Shortness of Breath, Cough, Wheezing Cardiovascular: Reports: Edema. Denies: Chest Pain Gastrointestinal: Reports: Abdominal Pain, Nausea Genitourinary: Reports: No Symptoms Neurological: Reports: No Symptoms Psychiatric: Reports: No Symptoms - Patient Data Vitals - Most Recent: Last Vital Signs Temp 98.4 F 01/23/19 08:47 Pulse 90 01/23/19 08:47 Resp 16 01/23/19 08:47 BP 136/67 01/23/19 08:47 Pulse Ox 94 L 01/23/19 09:08 Weight - Most Recent: 258 lb 3.2 oz I&O - Last 24 Hours: Intake & Output 01/22/19 01/23/19 01/23/19 22:59 06:59 14:59 Intake Total 50 1701 Balance 50 1701 Lab Results Last 24 Hours: Laboratory Results - last 24 hr 01/22/19 01/22/19 01/22/19 Range/Units 08:26 08:26 14:00 WBC (3.98-10.04) K/mm3 RBC (3.98-5.22) M/mm3 Hgb (11.2-15.7) gm/L Hct (34.1-44.9) % MCV (79.4-94.8) fl MCH (25.6-32.2) pg MCHC (32.2-35.5) g/dl RDW Std Deviation (36.4-46.3) fL Plt Count (182-369) K/mm3 MPV (9.4-12.3) fl Neut % (Auto) (34.0-71.1) % Lymph % (Auto) (19.3-51.7) % [place] % (Auto) (4.7-12.5) % Eos % (Auto) (0.7-5.8) Baso % (Auto) (0.1-1.2) % Neut # (Auto) (1.56-6.13) K/mm3 Lymph # (Auto) (1.18-3.74) K/mm3 [place] # (Auto) (0.24-0.36) K/mm3 Eos # (Auto) (0.04-0.36) K/mm3 Baso # (Auto) (0.01-0.08) K/mm3 Manual Slide Review Sodium (136-145) mEq/L Potassium (3.5-5.1) mEq/L Chloride (98-107) mEq/L Carbon Dioxide (21-32) mEq/L Anion Gap (5-15) BUN (7-18) mg/dL Creatinine (0.55-1.02) mg/dL Est Cr Clr Drug Dosing mL/min Estimated GFR (MDRD) (>60) mL/min BUN/Creatinine Ratio (14-18) Glucose (80-115) mg/dL Lactic Acid (0.4-2.0) mmol/L Calcium (8.5-10.1) mg/dL Magnesium 1.8 (1.8-2.4) mg/dl Total Bilirubin (0.2-1.0) mg/dL Direct Bilirubin (0.0-0.2) mg/dl Indirect Bilirubin AST (15-37) U/L ALT (14-59) U/L Alkaline Phosphatase (46-116) U/L C-Reactive Protein (<1.0) mg/dL NT-Pro-B Natriuret Pep 300 H (0-125) pg/mL Total Protein (6.4-8.2) g/dl Albumin (3.4-5.0) g/dl Globulin gm/dL Albumin/Globulin Ratio (1-2) Triglycerides 49 (<150) mg/dL Cholesterol 155 (<200) mg/dL LDL Cholesterol Direct 106 H* (<100) mg/dL HDL Cholesterol 46.0 (40-59) mg/dL Amylase (25-115) U/L Lipase (73-393) U/L 01/22/19 01/22/19 01/22/19 Range/Units 16:30 16:45 16:45 WBC 20.00 H (3.98-10.04) K/mm3 RBC 5.78 H (3.98-5.22) M/mm3 Hgb 16.1 H (11.2-15.7) gm/L Hct 51.5 H (34.1-44.9) % MCV 89.1 (79.4-94.8) fl MCH 27.9 (25.6-32.2) pg MCHC 31.3 L (32.2-35.5) g/dl RDW Std Deviation 49.4 H (36.4-46.3) fL Plt Count 247 (182-369) K/mm3 MPV 9.8 (9.4-12.3) fl Neut % (Auto) 91.4 H (34.0-71.1) % Lymph % (Auto) 3.7 L (19.3-51.7) % [place] % (Auto) 4.4 L (4.7-12.5) % Eos % (Auto) 0.2 L (0.7-5.8) Baso % (Auto) 0.1 (0.1-1.2) % Neut # (Auto) 18.29 H (1.56-6.13) K/mm3 Lymph # (Auto) 0.74 L (1.18-3.74) K/mm3 [place] # (Auto) 0.88 H (0.24-0.36) K/mm3 Eos # (Auto) 0.04 (0.04-0.36) K/mm3 Baso # (Auto) 0.01 (0.01-0.08) K/mm3 Manual Slide Review Abnormal smear Sodium 139 (136-145) mEq/L Potassium 4.1 (3.5-5.1) mEq/L Chloride 102 (98-107) mEq/L Carbon Dioxide 29 (21-32) mEq/L Anion Gap 12.1 (5-15) BUN 22 H (7-18) mg/dL Creatinine 1.4 H (0.55-1.02) mg/dL Est Cr Clr Drug Dosing 44.59 mL/min Estimated GFR (MDRD) 38 (>60) mL/min BUN/Creatinine Ratio 15.7 (14-18) Glucose 114 (80-115) mg/dL Lactic Acid 1.4 (0.4-2.0) mmol/L Calcium 8.4 L (8.5-10.1) mg/dL Magnesium (1.8-2.4) mg/dl Total Bilirubin 1.8 H (0.2-1.0) mg/dL Direct Bilirubin (0.0-0.2) mg/dl Indirect Bilirubin AST 39 H (15-37) U/L ALT 63 H (14-59) U/L Alkaline Phosphatase 139 H (46-116) U/L C-Reactive Protein 26.2 H* (<1.0) mg/dL NT-Pro-B Natriuret Pep (0-125) pg/mL Total Protein 7.1 (6.4-8.2) g/dl Albumin 2.9 L (3.4-5.0) g/dl Globulin 4.2 gm/dL Albumin/Globulin Ratio 0.7 L (1-2) Triglycerides (<150) mg/dL Cholesterol (<200) mg/dL LDL Cholesterol Direct (<100) mg/dL HDL Cholesterol (40-59) mg/dL Amylase (25-115) U/L Lipase (73-393) U/L 01/23/19 01/23/19 01/23/19 Range/Units 05:55 05:55 05:55 WBC 20.45 H (3.98-10.04) K/mm3 RBC 5.07 (3.98-5.22) M/mm3 Hgb 14.8 (11.2-15.7) gm/L Hct 45.3 H (34.1-44.9) % MCV 89.3 (79.4-94.8) fl MCH 29.2 (25.6-32.2) pg MCHC 32.7 (32.2-35.5) g/dl RDW Std Deviation 49.4 H (36.4-46.3) fL Plt Count 214 (182-369) K/mm3 MPV 9.9 (9.4-12.3) fl Neut % (Auto) 89.2 H (34.0-71.1) % Lymph % (Auto) 4.6 L (19.3-51.7) % [place] % (Auto) 5.9 (4.7-12.5) % Eos % (Auto) 0.2 L (0.7-5.8) Baso % (Auto) 0.1 (0.1-1.2) % Neut # (Auto) 18.24 H (1.56-6.13) K/mm3 Lymph # (Auto) 0.94 L (1.18-3.74) K/mm3 [place] # (Auto) 1.21 H (0.24-0.36) K/mm3 Eos # (Auto) 0.04 (0.04-0.36) K/mm3 Baso # (Auto) 0.02 (0.01-0.08) K/mm3 Manual Slide Review Abnormal smear Sodium (136-145) mEq/L Potassium (3.5-5.1) mEq/L Chloride (98-107) mEq/L Carbon Dioxide (21-32) mEq/L Anion Gap (5-15) BUN (7-18) mg/dL Creatinine (0.55-1.02) mg/dL Est Cr Clr Drug Dosing mL/min Estimated GFR (MDRD) (>60) mL/min BUN/Creatinine Ratio (14-18) Glucose (80-115) mg/dL Lactic Acid 1.5 (0.4-2.0) mmol/L Calcium (8.5-10.1) mg/dL Magnesium 2.0 (1.8-2.4) mg/dl Total Bilirubin 1.7 H (0.2-1.0) mg/dL Direct Bilirubin 0.60 H (0.0-0.2) mg/dl Indirect Bilirubin 1.10 AST 28 (15-37) U/L ALT 44 (14-59) U/L Alkaline Phosphatase 108 (46-116) U/L C-Reactive Protein (<1.0) mg/dL NT-Pro-B Natriuret Pep (0-125) pg/mL Total Protein 6.2 L (6.4-8.2) g/dl Albumin 2.4 L (3.4-5.0) g/dl Globulin 3.8 gm/dL Albumin/Globulin Ratio 0.6 L (1-2) Triglycerides (<150) mg/dL Cholesterol (<200) mg/dL LDL Cholesterol Direct (<100) mg/dL HDL Cholesterol (40-59) mg/dL Amylase 388 H (25-115) U/L Lipase 2042 H (73-393) U/L 01/23/19 Range/Units 05:55 WBC (3.98-10.04) K/mm3 RBC (3.98-5.22) M/mm3 Hgb (11.2-15.7) gm/L Hct (34.1-44.9) % MCV (79.4-94.8) fl MCH (25.6-32.2) pg MCHC (32.2-35.5) g/dl RDW Std Deviation (36.4-46.3) fL Plt Count (182-369) K/mm3 MPV (9.4-12.3) fl Neut % (Auto) (34.0-71.1) % Lymph % (Auto) (19.3-51.7) % [place] % (Auto) (4.7-12.5) % Eos % (Auto) (0.7-5.8) Baso % (Auto) (0.1-1.2) % Neut # (Auto) (1.56-6.13) K/mm3 Lymph # (Auto) (1.18-3.74) K/mm3 [place] # (Auto) (0.24-0.36) K/mm3 Eos # (Auto) (0.04-0.36) K/mm3 Baso # (Auto) (0.01-0.08) K/mm3 Manual Slide Review Sodium 138 (136-145) mEq/L Potassium 4.4 (3.5-5.1) mEq/L Chloride 103 (98-107) mEq/L Carbon Dioxide 25 (21-32) mEq/L Anion Gap 14.4 (5-15) BUN 25 H (7-18) mg/dL Creatinine 1.3 H (0.55-1.02) mg/dL Est Cr Clr Drug Dosing 48.02 mL/min Estimated GFR (MDRD) 41 (>60) mL/min BUN/Creatinine Ratio 19.2 H (14-18) Glucose 141 H (80-115) mg/dL Lactic Acid (0.4-2.0) mmol/L Calcium 8.4 L (8.5-10.1) mg/dL Magnesium (1.8-2.4) mg/dl Total Bilirubin 1.6 H (0.2-1.0) mg/dL Direct Bilirubin (0.0-0.2) mg/dl Indirect Bilirubin AST 29 (15-37) U/L ALT 44 (14-59) U/L Alkaline Phosphatase 111 (46-116) U/L C-Reactive Protein (<1.0) mg/dL NT-Pro-B Natriuret Pep (0-125) pg/mL Total Protein 6.2 L (6.4-8.2) g/dl Albumin 2.5 L (3.4-5.0) g/dl Globulin 3.7 gm/dL Albumin/Globulin Ratio 0.7 L (1-2) Triglycerides (<150) mg/dL Cholesterol (<200) mg/dL LDL Cholesterol Direct (<100) mg/dL HDL Cholesterol (40-59) mg/dL Amylase (25-115) U/L Lipase (73-393) U/L Med Orders - Current: Current Medications Albuterol (Proventil Hfa) 0 gm INH ASDIRECTED PRN PRN Reason: Shortness of Breath Hydromorphone HCl (Dilaudid) 0.5 - 1 mg IVPUSH Q1H PRN PRN Reason: Pain Last Admin: 01/23/19 08:39 Dose: 0.5 mg Lactated Ringer's (Ringers, Lactated) 1,000 mls @ 200 mls/hr IV ASDIRECTED [facility]IS[facility] Last Admin: 01/23/19 06:12 Dose: 200 mls/hr Metronidazole 500 mg/ Premix 100 mls @ 100 mls/hr IV Q8H [facility] Last Admin: 01/23/19 08:38 Dose: 100 mls/hr Levofloxacin (Levaquin) 750 mg PO Q48H [facility] Last Admin: 01/22/19 18:16 Dose: 750 mg Mometasone Furoate/Formoterol Fumar (Dulera 200-5 Mcg) 2 puff IH BID [facility] Last Admin: 01/23/19 09:08 Dose: 2 puff Ondansetron HCl (Zofran) 4 mg IVPUSH Q4H PRN PRN Reason: Vomiting Pantoprazole Sodium (Protonix Iv) 40 mg IVPUSH DAILY [facility] Discontinued Medications Fentanyl (Sublimaze) 50 mcg IVPUSH ONETIME ONE Stop: 01/22/19 01:31 Last Admin: 01/22/19 01:42 Dose: 50 mcg Lactated Ringer's (Ringers, Lactated) 1,000 mls @ 999 mls/hr IV .BOLUS ONE Stop: 01/21/19 23:44 Last Admin: 01/21/19 23:01 Dose: 999 mls/hr Lactated Ringer's (Ringers, Lactated) 1,000 mls @ 125 mls/hr IV ASDIRECTED [facility] Last Admin: 01/22/19 00:14 Dose: 125 mls/hr Lactated Ringer's (Ringers, Lactated) 1,000 mls @ 250 mls/hr IV ASDIRECTED [facility] Last Infusion: 01/22/19 13:04 Dose: 150 mls/hr Lactated Ringer's (Ringers, Lactated) 1,000 mls @ 150 mls/hr IV ASDIRECTED [facility] Last Infusion: 01/22/19 17:33 Dose: 200 mls/hr Magnesium Sulfate 2 gm/ Premix 50 mls @ 25 mls/hr IV ONETIME ONE Stop: 01/22/19 14:24 Last Admin: 01/22/19 13:03 Dose: 25 mls/hr Iohexol (Omnipaque) 75 ml IVPUSH ONETIME ONE Stop: 01/22/19 01:58 Last Admin: 01/22/19 06:33 Dose: Not Given Ondansetron HCl (Zofran) 4 mg IVPUSH ONETIME ONE Stop: 01/21/19 22:45 Last Admin: 01/21/19 23:01 Dose: 4 mg Ondansetron HCl (Zofran) 4 mg IVPUSH Q4HR PRN PRN Reason: Nausea - Exam Quality Assessment: Supplemental Oxygen General: Alert, Oriented HEENT: Pupils Equal Neck: Supple Lungs: Clear to Auscultation, Normal Respiratory Effort. No: Crackles, Rales Cardiovascular: Regular Rate, Regular Rhythm GI/Abdominal Exam: Other (Decreased bowel sounds. Epigastric tenderness without guarding or rebound.) Extremities: Other (12+ pitting edema lower extremities, no worse than yesterday.) Neurological: No New Focal Deficit Psy/Mental Status: Alert, Normal Affect, Normal Mood - Problem List & Annotations (1) Pancreatitis SNOMED Code(s): 98353232 Code(s): K85.90 - ACUTE PANCREATITIS WITHOUT NECROSIS OR INFECTION, UNSP Status: Acute Current Visit: Yes (2) Acute renal injury SNOMED Code(s): 37602750, 84079197 Code(s): N17.9 - ACUTE KIDNEY FAILURE, UNSPECIFIED Status: Acute Current Visit: Yes (3) Cholecystitis, acute SNOMED Code(s): 08757346 Code(s): K81.0 - ACUTE CHOLECYSTITIS Status: Acute Current Visit: Yes - Problem List Review Problem List Initiated/Reviewed/Updated: Yes - My Orders Last 24 Hours: My Active Orders 01/22/19 11:46 Albuterol [Proventil HFA] 0 gm INH ASDIRECTED PRN 01/22/19 11:47 Ondansetron [Zofran] 4 mg IVPUSH Q4H PRN 01/22/19 12:26 Consult to Physician [CONS] Routine 01/22/19 17:30 Lactated Ringers [Ringers, Lactated] 1,000 ml IV ASDIRECTED metroNIDAZOLE/Normal Saline [Flagyl 500 MG in NS 100 ML] 500 mg Premix Bag 1 bag IV Q8H 01/22/19 18:00 levoFLOXacin [Levaquin] 750 mg PO Q48H 01/22/19 21:00 Mometasone/Formoterol [Dulera 200-5 MCG] 2 puff IH BID 01/23/19 05:11 CXR [Chest 1V Frontal] [CR] AM 01/23/19 09:15 Pantoprazole [ProTONIX IV] 40 mg IVPUSH DAILY - Plan Plan:: Acute pancreatitis * Initial white count 15.94 --> 20.45. Hemoglobin 17.1 decreased to 14.8 with hydration * Initial lipase 9602 -->2042 * Total bilirubin 1.2 --> 1.6 with direct of 0.30 --> 0.06 * BUN 23 --> 25; Creatinine 1.5 --> 1.3 * IV hydration, pain control, nothing by mouth * Right upper quadrant ultrasound showed multiple gallstones in the gallbladder. There is mild gallbladder wall thickening. Fatty infiltration within the liver with mild focal fatty sparing next to the gallbladder. * Repeat CBC, CMP at 1500 Acute cholecystitis * MRCP: 1. Edematous change around the pancreas and extending inferiorly. 2. Mild amount of fluid around the liver and spleen compatible with reactive fluid from the pancreatitis. 3. MRCP shows no discrete abnormality other than gallstones. Multiple cysts were also seen in both kidneys. One cyst appears to be hemorrhagic within the upper right kidney. * Surgery following Chest pain with history of [place] * No acute changes on ECG and troponins are less than 0.017 * Continue to monitor but likely due to vomiting for the last 2 days Acute kidney injury * Creatinine improved overnight with IV hydration. BUN 23 --> 25; Creatinine 1.5 --> 1.3 * Continue IV hydration with LR at 200 ml/hr and recheck labs at 1500 Asthma * Continue home meds. * Nebs PRN Discharge planning 3-4 days CODE STATUS: Full code
[2019-01-23] MEDS ORDERED: Nystatin Topical Powder 15 GM Bottle TOP SCH ×2 (11:00→11:58)
[2019-01-23 12:54] VITALS: BP 136/75
--- NOTE | 2019-01-23 15:23 | PCM.CONSN ---
- General Info Date of Service: 01/23/19 Admission Dx/Problem (Free Text): Admission Diagnosis/Problem Admission Diagnosis/Problem Pancreatitis Subjective Update: Patient continues to have epigastric abdominal pain radiating to her back. Pain is rated 5/10 (compared to 10/10 at time of admission). She feels her back pain is worse now. In trying to understand her cardiac history, patient gives the following history : - Had a possible previous heart attack 5 years ago, which led to cardiac cath without stents placed. Never placed on ASA or Plavix. However, she does have a history of ASA allergy, which leads to face and throat swelling. - She had previous used nitroglycerin a few years ago, but was taken off of that. - She sees a sandwich counter attendant in [place] twice a year. - She underwent open heart surgery at 18 months due to some blood vessel problem (?) - Had a cardiac echo in the - Has chest pain and SOB with exertion. - Uses Lasix when needed (when she develops ankle swelling). Patient is poor historian. Patient was evaluated with in the room. - Patient Data Vitals - Most Recent: Last Vital Signs Temp 36.6 C 01/23/19 12:12 Pulse 90 01/23/19 12:12 Resp 16 01/23/19 12:12 BP 136/75 01/23/19 12:12 Pulse Ox 94 L 01/23/19 12:41 Weight - Most Recent: 117.118 kg I&O - Last 24 Hours: Intake & Output 01/23/19 01/23/19 01/23/19 06:59 14:59 22:59 Intake Total 1701 Balance 1701 Lab Results Last 24 Hours: Laboratory Results - last 24 hr 01/22/19 01/22/19 01/22/19 Range/Units 08:26 16:30 16:45 WBC 20.00 H (3.98-10.04) K/mm3 RBC 5.78 H (3.98-5.22) M/mm3 Hgb 16.1 H (11.2-15.7) gm/L Hct 51.5 H (34.1-44.9) % MCV 89.1 (79.4-94.8) fl MCH 27.9 (25.6-32.2) pg MCHC 31.3 L (32.2-35.5) g/dl RDW Std Deviation 49.4 H (36.4-46.3) fL Plt Count 247 (182-369) K/mm3 MPV 9.8 (9.4-12.3) fl Neut % (Auto) 91.4 H (34.0-71.1) % Lymph % (Auto) 3.7 L (19.3-51.7) % Swisher % (Auto) 4.4 L (4.7-12.5) % Eos % (Auto) 0.2 L (0.7-5.8) Baso % (Auto) 0.1 (0.1-1.2) % Neut # (Auto) 18.29 H (1.56-6.13) K/mm3 Lymph # (Auto) 0.74 L (1.18-3.74) K/mm3 Swisher # (Auto) 0.88 H (0.24-0.36) K/mm3 Eos # (Auto) 0.04 (0.04-0.36) K/mm3 Baso # (Auto) 0.01 (0.01-0.08) K/mm3 Manual Slide Review Abnormal smear Sodium 139 (136-145) mEq/L Potassium 4.1 (3.5-5.1) mEq/L Chloride 102 (98-107) mEq/L Carbon Dioxide 29 (21-32) mEq/L Anion Gap 12.1 (5-15) BUN 22 H (7-18) mg/dL Creatinine 1.4 H (0.55-1.02) mg/dL Est Cr Clr Drug Dosing 44.59 mL/min Estimated GFR (MDRD) 38 (>60) mL/min BUN/Creatinine Ratio 15.7 (14-18) Glucose 114 (80-115) mg/dL Lactic Acid (0.4-2.0) mmol/L Calcium 8.4 L (8.5-10.1) mg/dL Magnesium (1.8-2.4) mg/dl Total Bilirubin 1.8 H (0.2-1.0) mg/dL Direct Bilirubin (0.0-0.2) mg/dl Indirect Bilirubin AST 39 H (15-37) U/L ALT 63 H (14-59) U/L Alkaline Phosphatase 139 H (46-116) U/L C-Reactive Protein 26.2 H* (<1.0) mg/dL Total Protein 7.1 (6.4-8.2) g/dl Albumin 2.9 L (3.4-5.0) g/dl Globulin 4.2 gm/dL Albumin/Globulin Ratio 0.7 L (1-2) Triglycerides 49 (<150) mg/dL Cholesterol 155 (<200) mg/dL LDL Cholesterol Direct 106 H* (<100) mg/dL HDL Cholesterol 46.0 (40-59) mg/dL Amylase (25-115) U/L Lipase (73-393) U/L 01/22/19 01/23/19 01/23/19 Range/Units 16:45 05:55 05:55 WBC 20.45 H (3.98-10.04) K/mm3 RBC 5.07 (3.98-5.22) M/mm3 Hgb 14.8 (11.2-15.7) gm/L Hct 45.3 H (34.1-44.9) % MCV 89.3 (79.4-94.8) fl MCH 29.2 (25.6-32.2) pg MCHC 32.7 (32.2-35.5) g/dl RDW Std Deviation 49.4 H (36.4-46.3) fL Plt Count 214 (182-369) K/mm3 MPV 9.9 (9.4-12.3) fl Neut % (Auto) 89.2 H (34.0-71.1) % Lymph % (Auto) 4.6 L (19.3-51.7) % Swisher % (Auto) 5.9 (4.7-12.5) % Eos % (Auto) 0.2 L (0.7-5.8) Baso % (Auto) 0.1 (0.1-1.2) % Neut # (Auto) 18.24 H (1.56-6.13) K/mm3 Lymph # (Auto) 0.94 L (1.18-3.74) K/mm3 Swisher # (Auto) 1.21 H (0.24-0.36) K/mm3 Eos # (Auto) 0.04 (0.04-0.36) K/mm3 Baso # (Auto) 0.02 (0.01-0.08) K/mm3 Manual Slide Review Abnormal smear Sodium (136-145) mEq/L Potassium (3.5-5.1) mEq/L Chloride (98-107) mEq/L Carbon Dioxide (21-32) mEq/L Anion Gap (5-15) BUN (7-18) mg/dL Creatinine (0.55-1.02) mg/dL Est Cr Clr Drug Dosing mL/min Estimated GFR (MDRD) (>60) mL/min BUN/Creatinine Ratio (14-18) Glucose (80-115) mg/dL Lactic Acid 1.4 (0.4-2.0) mmol/L Calcium (8.5-10.1) mg/dL Magnesium 2.0 (1.8-2.4) mg/dl Total Bilirubin 1.7 H (0.2-1.0) mg/dL Direct Bilirubin 0.60 H (0.0-0.2) mg/dl Indirect Bilirubin 1.10 AST 28 (15-37) U/L ALT 44 (14-59) U/L Alkaline Phosphatase 108 (46-116) U/L C-Reactive Protein (<1.0) mg/dL Total Protein 6.2 L (6.4-8.2) g/dl Albumin 2.4 L (3.4-5.0) g/dl Globulin 3.8 gm/dL Albumin/Globulin Ratio 0.6 L (1-2) Triglycerides (<150) mg/dL Cholesterol (<200) mg/dL LDL Cholesterol Direct (<100) mg/dL HDL Cholesterol (40-59) mg/dL Amylase 388 H (25-115) U/L Lipase 2042 H (73-393) U/L 01/23/19 01/23/19 Range/Units 05:55 05:55 WBC (3.98-10.04) K/mm3 RBC (3.98-5.22) M/mm3 Hgb (11.2-15.7) gm/L Hct (34.1-44.9) % MCV (79.4-94.8) fl MCH (25.6-32.2) pg MCHC (32.2-35.5) g/dl RDW Std Deviation (36.4-46.3) fL Plt Count (182-369) K/mm3 MPV (9.4-12.3) fl Neut % (Auto) (34.0-71.1) % Lymph % (Auto) (19.3-51.7) % Swisher % (Auto) (4.7-12.5) % Eos % (Auto) (0.7-5.8) Baso % (Auto) (0.1-1.2) % Neut # (Auto) (1.56-6.13) K/mm3 Lymph # (Auto) (1.18-3.74) K/mm3 Swisher # (Auto) (0.24-0.36) K/mm3 Eos # (Auto) (0.04-0.36) K/mm3 Baso # (Auto) (0.01-0.08) K/mm3 Manual Slide Review Sodium 138 (136-145) mEq/L Potassium 4.4 (3.5-5.1) mEq/L Chloride 103 (98-107) mEq/L Carbon Dioxide 25 (21-32) mEq/L Anion Gap 14.4 (5-15) BUN 25 H (7-18) mg/dL Creatinine 1.3 H (0.55-1.02) mg/dL Est Cr Clr Drug Dosing 48.02 mL/min Estimated GFR (MDRD) 41 (>60) mL/min BUN/Creatinine Ratio 19.2 H (14-18) Glucose 141 H (80-115) mg/dL Lactic Acid 1.5 (0.4-2.0) mmol/L Calcium 8.4 L (8.5-10.1) mg/dL Magnesium (1.8-2.4) mg/dl Total Bilirubin 1.6 H (0.2-1.0) mg/dL Direct Bilirubin (0.0-0.2) mg/dl Indirect Bilirubin AST 29 (15-37) U/L ALT 44 (14-59) U/L Alkaline Phosphatase 111 (46-116) U/L C-Reactive Protein (<1.0) mg/dL Total Protein 6.2 L (6.4-8.2) g/dl Albumin 2.5 L (3.4-5.0) g/dl Globulin 3.7 gm/dL Albumin/Globulin Ratio 0.7 L (1-2) Triglycerides (<150) mg/dL Cholesterol (<200) mg/dL LDL Cholesterol Direct (<100) mg/dL HDL Cholesterol (40-59) mg/dL Amylase (25-115) U/L Lipase (73-393) U/L Med Orders - Current: Current Medications Albuterol (Proventil Hfa) 0 gm INH ASDIRECTED PRN PRN Reason: Shortness of Breath Last Admin: 01/23/19 12:40 Dose: 2 puff Hydromorphone HCl (Dilaudid) 0.5 - 1 mg IVPUSH Q1H PRN PRN Reason: Pain Last Admin: 01/23/19 13:04 Dose: 0.5 mg Lactated Ringer's (Ringers, Lactated) 1,000 mls @ 200 mls/hr IV ASDIRECTED [facility] Last Admin: 01/23/19 11:00 Dose: 200 mls/hr Metronidazole 500 mg/ Premix 100 mls @ 100 mls/hr IV Q8H [facility] Last Admin: 01/23/19 08:38 Dose: 100 mls/hr Levofloxacin (Levaquin) 750 mg PO Q48H [facility] Last Admin: 01/22/19 18:16 Dose: 750 mg Mometasone Furoate/Formoterol Fumar (Dulera 200-5 Mcg) 2 puff IH BID [facility] Last Admin: 01/23/19 09:08 Dose: 2 puff Nystatin (Nystop) 0 gm TOP BID [facility] Ondansetron HCl (Zofran) 4 mg IVPUSH Q4H PRN PRN Reason: Vomiting Pantoprazole Sodium (Protonix) 40 mg PO DAILY@0700 [facility] Discontinued Medications Fentanyl (Sublimaze) 50 mcg IVPUSH ONETIME ONE Stop: 01/22/19 01:31 Last Admin: 01/22/19 01:42 Dose: 50 mcg Lactated Ringer's (Ringers, Lactated) 1,000 mls @ 999 mls/hr IV .BOLUS ONE Stop: 01/21/19 23:44 Last Admin: 01/21/19 23:01 Dose: 999 mls/hr Lactated Ringer's (Ringers, Lactated) 1,000 mls @ 125 mls/hr IV ASDIRECTED [facility] Last Admin: 01/22/19 00:14 Dose: 125 mls/hr Lactated Ringer's (Ringers, Lactated) 1,000 mls @ 250 mls/hr IV ASDIRECTED [facility] Last Infusion: 01/22/19 13:04 Dose: 150 mls/hr Lactated Ringer's (Ringers, Lactated) 1,000 mls @ 150 mls/hr IV ASDIRECTED [facility] Last Infusion: 01/22/19 17:33 Dose: 200 mls/hr Magnesium Sulfate 2 gm/ Premix 50 mls @ 25 mls/hr IV ONETIME ONE Stop: 01/22/19 14:24 Last Admin: 01/22/19 13:03 Dose: 25 mls/hr Iohexol (Omnipaque) 75 ml IVPUSH ONETIME ONE Stop: 01/22/19 01:58 Last Admin: 01/22/19 06:33 Dose: Not Given Nystatin (Nystop) 100,000 gm TOP BID [facility] Last Admin: 01/23/19 12:52 Dose: Not Given Ondansetron HCl (Zofran) 4 mg IVPUSH ONETIME ONE Stop: 01/21/19 22:45 Last Admin: 01/21/19 23:01 Dose: 4 mg Ondansetron HCl (Zofran) 4 mg IVPUSH Q4HR PRN PRN Reason: Nausea Pantoprazole Sodium (Protonix Iv) 40 mg IVPUSH DAILY [facility] Last Admin: 01/23/19 09:46 Dose: 40 mg - Exam General: Alert, Oriented, Cooperative, No Acute Distress HEENT: No: Scleral Icterus Neck: Supple, Trachea Midline GI/Abdominal Exam: Soft, Tender (tender to epigastric area.), Hernia (umbilical hernia noted, mildly tender. partially reducible.), Other (Obese) Extremities: No: Pedal Edema Skin: Warm, Dry, Intact, Other (No jaundice) Psy/Mental Status: Alert, Normal Affect, Normal Mood Consult PN Assessment/Plan Procedures: Procedures AIRWAY INHALATION TREATMENT (11/04/14) ASSAY OF TROPONIN QUANT (07/06/15) C-REACTIVE PROTEIN (03/04/17) CARDIOVASCULAR STRESS TEST (07/21/15) CHEST X-RAY 1 VIEW FRONTAL (07/06/15) CHEST X-RAY 2VW FRONTAL&LATL (08/14/15) COMPLETE CBC W/AUTO DIFF WBC (03/04/17) COMPREHEN METABOLIC PANEL (07/06/15) CREATINE MB FRACTION (07/06/15) DIAGNOSTIC COLONOSCOPY (06/06/15) EGD BIOPSY SINGLE/MULTIPLE (06/06/15) ELECTROCARDIOGRAM TRACING (07/06/15) EMERGENCY DEPT VISIT (03/04/17) EMERGENCY DEPT VISIT (08/14/15) EMERGENCY DEPT VISIT (07/30/14) EVALUATE PT USE OF INHALER (08/14/15) EXTREMITY STUDY (03/04/17) FIBRIN DEGRADATION QUANT (07/06/15) HT MUSCLE IMAGE SPECT MULT (07/21/15) METABOLIC PANEL TOTAL CA (03/04/17) PROTHROMBIN TIME (03/04/17) ROUTINE VENIPUNCTURE (03/04/17) THROMBOPLASTIN TIME PARTIAL (07/06/15) TISSUE EXAM BY PATHOLOGIST (06/06/15) X-RAY EXAM OF KNEE 3 (03/04/17) (1) Gallstone pancreatitis SNOMED Code(s): 96430801 Code(s): K85.10 - BILIARY ACUTE PANCREATITIS WITHOUT NECROSIS OR INFECTION Current Visit: Yes Problem List Initiated/Reviewed/Updated: Yes Plan: IMPRESSION/RECOMMENDATIONS: 63 yo female, h/o multiple medical problems, including CRI (Baseline Cr 1.3), possible acute coronary syndrome (?), possible CHF (?), HLD, GERD, asthma, morbid obesity (BMI 37), 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 Notably, patient also has significant leukocytosis that has increased to over 20k. Pain still persistent, but somewhat improved, with a decrease lipase from 9602 on admission to now 2041. Radiology studies and reports were reviewed (including yesterday's CT Abd/pelvis , MRI/MRCP, and RUQ U/S). CT shows pancreatic inflammation with some free fluid in abdomen (around liver) and pelvis. Also small fat-containing umbilical hernia. This AM CXR imaging reviewed. Bibasilar airspace disease, with possible small RIGHT pleural effusion. Poor inspiratory effort. - Continue bowel rest and IV fluids. - Closely monitor UOP for fluid status. - Pain control. IV narcotics. - OK on current antibiotic regimen (Levaquin/Flagyl). - Patient will require cholecystectomy prior to discharge. However, patient's co-morbidities may require higher level of care. Her cardiac history is unclear, but it seems she regularly undergoes care with sandwich counter attendant. - Recommend obtaining records from [facility] to further clarify. - Recommend also performing cardiac echo to assess cardiac function. If above work-up and evaluation would be difficult here, would strongly consider transfer to higher level of care. Case discussed with Dr. Abdi, hospitalist. Juma Harris M.D ([place]iri)., F.A.C.S. General Surgery
--- NOTE | 2019-01-23 15:40 | PCM.DCSUM1 ---
Discharge Summary - Hospital Course HPI Initial Comments: Patient present to the emergency room last night at approximately 1800 secondary to a 1 day history of nausea, vomiting, and epigastric abdominal pain. Patient states that she went to [facility] on Friday at 1530 and directly after that she started vomiting and had abdominal pain. Patient states it's in the epigastrium and continued all night. Yesterday she went into the walk-in clinic where they gave her "some pills" which did not help. She has been unable to keep down fluids or food. Patient then presented to the emergency room. Patient states that 3-4 years ago she had an MRI, but denies any cardiac stents or heart surgery. ALAN Irby is her primary care provider. Patient does not know when her last bowel movement was. She denies any hematemesis or hemoptysis. She denies any diarrhea. He has never had a keratitis in the past. She rarely drinks alcohol and has not drunk alcohol recently. She stopped smoking 40 years ago.Patient denies fever or chills. In the emergency room her temperature was 36.3. She received 1 L of fluids, nausea and pain medication. CT of the abdomen showed fatty liver, changes consistent with pancreatitis, and multiple renal cysts. Abdominal x-ray showed slightly prominent small bowel within the mid abdomen is likely representing small bowel ileus secondary to pancreatitis as seen on subsequent CT exam. Mild bilateral atelectasis. Brief History: January 23, 2019. Patient had an uneventful night. She continues to give fluids at 200 mL an hour. Pain has improved since admission. She is having large amount of urine output. She is on 2 L nasal cannula because her oxygen saturations do drop especially after receiving Dilaudid for pain. Patient does have a history of asthma. She continues nothing by mouth. Patient was seen by surgery and he felt that she would need a cholecystectomy prior to discharge. Right upper quadrant ultrasound showed multiple gallstones in the gallbladder. There is mild gallbladder wall thickening. Fatty infiltration within the liver with mild focal fatty sparing next to the gallbladder. MRCP: 1. Edematous change around the pancreas and extending inferiorly. 2. Mild amount of fluid around the liver and spleen compatible with reactive fluid from the pancreatitis. 3. MRCP shows no discrete abnormality other than gallstones. Multiple cysts were also seen in both kidneys. One cyst appears to be hemorrhagic within the upper right kidney. Diagnosis: Stroke: No - Discharge Data Discharge Date: 01/23/19 Discharge Disposition: DC/Tfer to Acute Hospital 02 Condition: Good - Discharge Diagnosis/Problem(s) (1) Pancreatitis SNOMED Code(s): 94817876 ICD Code: K85.90 - ACUTE PANCREATITIS WITHOUT NECROSIS OR INFECTION, UNSP Status: Acute Current Visit: Yes (2) Acute renal injury SNOMED Code(s): 43558111, 17008422 ICD Code: N17.9 - ACUTE KIDNEY FAILURE, UNSPECIFIED Status: Acute Current Visit: Yes (3) Cholecystitis, acute SNOMED Code(s): 27321451 ICD Code: K81.0 - ACUTE CHOLECYSTITIS Status: Acute Current Visit: Yes - Patient Summary/Data Consults: Consultations 01/22/19 12:26 Consult to Physician [CONS] Routine - Patient Instructions Diet: NPO Activity: Bedrest Driving: Do Not Drive Showering/Bathing: No Showering - Discharge Plan *PRESCRIPTION DRUG MONITORING PROGRAM REVIEWED*: Not Applicable *COPY OF PRESCRIPTION DRUG MONITORING REPORT IN PATIENT DANA: Not Applicable Home Medications: Home Meds Albuterol Sulfate [Albuterol Sulfate HFA] 2 puff INH Q4H PRN 06/05/15 [History] Budesonide/Formoterol [Symbicort 160-4.5 MCG] 2 puff INH BID 01/21/19 [History] HYDROmorphone [Dilaudid] 0.5 - 1 mg IVPUSH Q1H PRN syringe 01/23/19 [Rx] Lactated Ringers [Ringers, Lactated] 150 ml IV ASDIRECTED bag 01/23/19 [Rx] Nystatin [Nystop] 0 gm TOP BID bottle 01/23/19 [Rx] Ondansetron [Zofran] 4 mg IVPUSH Q4H PRN vial 01/23/19 [Rx] Pantoprazole [ProTONIX] 40 mg PO DAILY@0700 tab.cr 01/23/19 [Rx] levoFLOXacin [Levaquin] 750 mg PO Q48H tablet 01/23/19 [Rx] metroNIDAZOLE/Normal Saline [Flagyl 500 MG in NS 100 ML] 500 mg IV Q8H bag 08/03 [Rx] Oxygen Therapy Mode: Nasal Cannula Oxygen Flow Rate (L/min): 2 Maintain SpO2% greater than: 92 Patient Handouts: Acute Pancreatitis, [id number] Referrals: Israel Wall Jr, MD [Primary Care Provider] - - Discharge Summary/Plan Comment DC Time >30 min.: Yes Discharge Summary/Plan Comment: Acute pancreatitis * Initial white count 15.94 --> 20.45. Hemoglobin 17.1 decreased to 14.8 with hydration * Initial lipase 9602 -->2042 * Total bilirubin 1.2 --> 1.6 with direct of 0.30 --> 0.06 * BUN 23 --> 25; Creatinine 1.5 --> 1.3 * IV hydration, pain control, nothing by mouth * Right upper quadrant ultrasound showed multiple gallstones in the gallbladder. There is mild gallbladder wall thickening. Fatty infiltration within the liver with mild focal fatty sparing next to the gallbladder. * Repeat CBC, CMP at 1500 Acute cholecystitis * MRCP: 1. Edematous change around the pancreas and extending inferiorly. 2. Mild amount of fluid around the liver and spleen compatible with reactive fluid from the pancreatitis. 3. MRCP shows no discrete abnormality other than gallstones. Multiple cysts were also seen in both kidneys. One cyst appears to be hemorrhagic within the upper right kidney. * Surgery following. Surgery recommended that she have a cholecystectomy prior to discharge. Patient requested having the cholecystectomy at [facility] in [place]. Chest pain with history of SD * No acute changes on ECG and troponins are less than 0.017 * Continue to monitor but likely due to vomiting for the last 2 days Acute kidney injury * Creatinine improved overnight with IV hydration. BUN 23 --> 25; Creatinine 1.5 --> 1.3 * Continue IV hydration with LR at 200 ml/hr and recheck labs at 1500 Asthma * Continue home meds. * Nebs PRN Patient will be transferred to [facility] in [place]. Accepting doctor is Dr. Morocho. CODE STATUS: Full code - Patient Data Vitals - Most Recent: Last Vital Signs Temp 97.9 F 01/23/19 12:12 Pulse 90 01/23/19 12:12 Resp 16 01/23/19 12:12 BP 136/75 01/23/19 12:12 Pulse Ox 94 L 01/23/19 12:41 Weight - Most Recent: 258 lb 3.2 oz I&O - Last 24 hours: Intake & Output 01/23/19 01/23/19 01/23/19 06:59 14:59 22:59 Intake Total 1701 Balance 1701 Lab Results - Last 24 hrs: Laboratory Results - last 24 hr 01/22/19 01/22/19 01/22/19 Range/Units 16:30 16:45 16:45 WBC 20.00 H (3.98-10.04) K/mm3 RBC 5.78 H (3.98-5.22) M/mm3 Hgb 16.1 H (11.2-15.7) gm/L Hct 51.5 H (34.1-44.9) % MCV 89.1 (79.4-94.8) fl MCH 27.9 (25.6-32.2) pg MCHC 31.3 L (32.2-35.5) g/dl RDW Std Deviation 49.4 H (36.4-46.3) fL Plt Count 247 (182-369) K/mm3 MPV 9.8 (9.4-12.3) fl Neut % (Auto) 91.4 H (34.0-71.1) % Lymph % (Auto) 3.7 L (19.3-51.7) % [place] % (Auto) 4.4 L (4.7-12.5) % Eos % (Auto) 0.2 L (0.7-5.8) Baso % (Auto) 0.1 (0.1-1.2) % Neut # (Auto) 18.29 H (1.56-6.13) K/mm3 Lymph # (Auto) 0.74 L (1.18-3.74) K/mm3 [place] # (Auto) 0.88 H (0.24-0.36) K/mm3 Eos # (Auto) 0.04 (0.04-0.36) K/mm3 Baso # (Auto) 0.01 (0.01-0.08) K/mm3 Manual Slide Review Abnormal smear Sodium 139 (136-145) mEq/L Potassium 4.1 (3.5-5.1) mEq/L Chloride 102 (98-107) mEq/L Carbon Dioxide 29 (21-32) mEq/L Anion Gap 12.1 (5-15) BUN 22 H (7-18) mg/dL Creatinine 1.4 H (0.55-1.02) mg/dL Est Cr Clr Drug Dosing 44.59 mL/min Estimated GFR (MDRD) 38 (>60) mL/min BUN/Creatinine Ratio 15.7 (14-18) Glucose 114 (80-115) mg/dL Lactic Acid 1.4 (0.4-2.0) mmol/L Calcium 8.4 L (8.5-10.1) mg/dL Magnesium (1.8-2.4) mg/dl Total Bilirubin 1.8 H (0.2-1.0) mg/dL Direct Bilirubin (0.0-0.2) mg/dl Indirect Bilirubin AST 39 H (15-37) U/L ALT 63 H (14-59) U/L Alkaline Phosphatase 139 H (46-116) U/L C-Reactive Protein 26.2 H* (<1.0) mg/dL Total Protein 7.1 (6.4-8.2) g/dl Albumin 2.9 L (3.4-5.0) g/dl Globulin 4.2 gm/dL Albumin/Globulin Ratio 0.7 L (1-2) Amylase (25-115) U/L Lipase (73-393) U/L 01/23/19 01/23/19 01/23/19 Range/Units 05:55 05:55 05:55 WBC 20.45 H (3.98-10.04) K/mm3 RBC 5.07 (3.98-5.22) M/mm3 Hgb 14.8 (11.2-15.7) gm/L Hct 45.3 H (34.1-44.9) % MCV 89.3 (79.4-94.8) fl MCH 29.2 (25.6-32.2) pg MCHC 32.7 (32.2-35.5) g/dl RDW Std Deviation 49.4 H (36.4-46.3) fL Plt Count 214 (182-369) K/mm3 MPV 9.9 (9.4-12.3) fl Neut % (Auto) 89.2 H (34.0-71.1) % Lymph % (Auto) 4.6 L (19.3-51.7) % [place] % (Auto) 5.9 (4.7-12.5) % Eos % (Auto) 0.2 L (0.7-5.8) Baso % (Auto) 0.1 (0.1-1.2) % Neut # (Auto) 18.24 H (1.56-6.13) K/mm3 Lymph # (Auto) 0.94 L (1.18-3.74) K/mm3 [place] # (Auto) 1.21 H (0.24-0.36) K/mm3 Eos # (Auto) 0.04 (0.04-0.36) K/mm3 Baso # (Auto) 0.02 (0.01-0.08) K/mm3 Manual Slide Review Abnormal smear Sodium (136-145) mEq/L Potassium (3.5-5.1) mEq/L Chloride (98-107) mEq/L Carbon Dioxide (21-32) mEq/L Anion Gap (5-15) BUN (7-18) mg/dL Creatinine (0.55-1.02) mg/dL Est Cr Clr Drug Dosing mL/min Estimated GFR (MDRD) (>60) mL/min BUN/Creatinine Ratio (14-18) Glucose (80-115) mg/dL Lactic Acid 1.5 (0.4-2.0) mmol/L Calcium (8.5-10.1) mg/dL Magnesium 2.0 (1.8-2.4) mg/dl Total Bilirubin 1.7 H (0.2-1.0) mg/dL Direct Bilirubin 0.60 H (0.0-0.2) mg/dl Indirect Bilirubin 1.10 AST 28 (15-37) U/L ALT 44 (14-59) U/L Alkaline Phosphatase 108 (46-116) U/L C-Reactive Protein (<1.0) mg/dL Total Protein 6.2 L (6.4-8.2) g/dl Albumin 2.4 L (3.4-5.0) g/dl Globulin 3.8 gm/dL Albumin/Globulin Ratio 0.6 L (1-2) Amylase 388 H (25-115) U/L Lipase 2042 H (73-393) U/L 01/23/19 01/23/19 Range/Units 05:55 15:25 WBC 19.92 H (3.98-10.04) K/mm3 RBC 5.08 (3.98-5.22) M/mm3 Hgb 14.6 (11.2-15.7) gm/L Hct 45.9 H (34.1-44.9) % MCV 90.4 (79.4-94.8) fl MCH 28.7 (25.6-32.2) pg MCHC 31.8 L (32.2-35.5) g/dl RDW Std Deviation 49.1 H (36.4-46.3) fL Plt Count 207 (182-369) K/mm3 MPV 10.1 (9.4-12.3) fl Neut % (Auto) 87.8 H (34.0-71.1) % Lymph % (Auto) 4.6 L (19.3-51.7) % [place] % (Auto) 6.8 (4.7-12.5) % Eos % (Auto) 0.3 L (0.7-5.8) Baso % (Auto) 0.5 (0.1-1.2) % Neut # (Auto) 17.50 H (1.56-6.13) K/mm3 Lymph # (Auto) 0.92 L (1.18-3.74) K/mm3 [place] # (Auto) 1.36 H (0.24-0.36) K/mm3 Eos # (Auto) 0.05 (0.04-0.36) K/mm3 Baso # (Auto) 0.09 H (0.01-0.08) K/mm3 Manual Slide Review Sodium 138 (136-145) mEq/L Potassium 4.4 (3.5-5.1) mEq/L Chloride 103 (98-107) mEq/L Carbon Dioxide 25 (21-32) mEq/L Anion Gap 14.4 (5-15) BUN 25 H (7-18) mg/dL Creatinine 1.3 H (0.55-1.02) mg/dL Est Cr Clr Drug Dosing 48.02 mL/min Estimated GFR (MDRD) 41 (>60) mL/min BUN/Creatinine Ratio 19.2 H (14-18) Glucose 141 H (80-115) mg/dL Lactic Acid (0.4-2.0) mmol/L Calcium 8.4 L (8.5-10.1) mg/dL Magnesium (1.8-2.4) mg/dl Total Bilirubin 1.6 H (0.2-1.0) mg/dL Direct Bilirubin (0.0-0.2) mg/dl Indirect Bilirubin AST 29 (15-37) U/L ALT 44 (14-59) U/L Alkaline Phosphatase 111 (46-116) U/L C-Reactive Protein (<1.0) mg/dL Total Protein 6.2 L (6.4-8.2) g/dl Albumin 2.5 L (3.4-5.0) g/dl Globulin 3.7 gm/dL Albumin/Globulin Ratio 0.7 L (1-2) Amylase (25-115) U/L Lipase (73-393) U/L Med Orders - Current: Current Medications Albuterol (Proventil Hfa) 0 gm INH ASDIRECTED PRN PRN Reason: Shortness of Breath Last Admin: 01/23/19 12:40 Dose: 2 puff Hydromorphone HCl (Dilaudid) 0.5 - 1 mg IVPUSH Q1H PRN PRN Reason: Pain Last Admin: 01/23/19 13:04 Dose: 0.5 mg Lactated Ringer's (Ringers, Lactated) 1,000 mls @ 200 mls/hr IV ASDIRECTED [facility] Last Admin: 01/23/19 11:00 Dose: 200 mls/hr Metronidazole 500 mg/ Premix 100 mls @ 100 mls/hr IV Q8H [facility] Last Admin: 01/23/19 08:38 Dose: 100 mls/hr Levofloxacin (Levaquin) 750 mg PO Q48H [facility] Last Admin: 01/22/19 18:16 Dose: 750 mg Mometasone Furoate/Formoterol Fumar (Dulera 200-5 Mcg) 2 puff IH BID [facility] Last Admin: 01/23/19 09:08 Dose: 2 puff Nystatin (Nystop) 0 gm TOP BID [facility] Ondansetron HCl (Zofran) 4 mg IVPUSH Q4H PRN PRN Reason: Vomiting Pantoprazole Sodium (Protonix) 40 mg PO DAILY@0700 [facility] Discontinued Medications Fentanyl (Sublimaze) 50 mcg IVPUSH ONETIME ONE Stop: 01/22/19 01:31 Last Admin: 01/22/19 01:42 Dose: 50 mcg Lactated Ringer's (Ringers, Lactated) 1,000 mls @ 999 mls/hr IV .BOLUS ONE Stop: 01/21/19 23:44 Last Admin: 01/21/19 23:01 Dose: 999 mls/hr Lactated Ringer's (Ringers, Lactated) 1,000 mls @ 125 mls/hr IV ASDIRECTED [facility] Last Admin: 01/22/19 00:14 Dose: 125 mls/hr Lactated Ringer's (Ringers, Lactated) 1,000 mls @ 250 mls/hr IV ASDIRECTED [facility] Last Infusion: 01/22/19 13:04 Dose: 150 mls/hr Lactated Ringer's (Ringers, Lactated) 1,000 mls @ 150 mls/hr IV ASDIRECTED [facility] Last Infusion: 01/22/19 17:33 Dose: 200 mls/hr Magnesium Sulfate 2 gm/ Premix 50 mls @ 25 mls/hr IV ONETIME ONE Stop: 01/22/19 14:24 Last Admin: 01/22/19 13:03 Dose: 25 mls/hr Iohexol (Omnipaque) 75 ml IVPUSH ONETIME ONE Stop: 01/22/19 01:58 Last Admin: 01/22/19 06:33 Dose: Not Given Nystatin (Nystop) 100,000 gm TOP BID [facility] Last Admin: 01/23/19 12:52 Dose: Not Given Ondansetron HCl (Zofran) 4 mg IVPUSH ONETIME ONE Stop: 01/21/19 22:45 Last Admin: 01/21/19 23:01 Dose: 4 mg Ondansetron HCl (Zofran) 4 mg IVPUSH Q4HR PRN PRN Reason: Nausea Pantoprazole Sodium (Protonix Iv) 40 mg IVPUSH DAILY [facility] Last Admin: 01/23/19 09:46 Dose: 40 mg
[2019-01-23] MEDS ORDERED: Lactated Ringers 1,000 ML IV SCH (16:00)
[2019-01-24] MEDS ORDERED: Pantoprazole 40 MG Tab.CR PO SCH (07:00)
--- NOTE | 2019-01-25 06:35 | CR ---
Chest: Portable view of the chest was obtained. Comparison: Prior chest x-ray of 08/14/15. Increased density identified within both lung bases. Lungs otherwise are clear. Heart size is normal. Tortuous thoracic aorta is seen. Bony structures are grossly intact. Impression: 1. Increased density within both lung bases, differential includes atelectasis, change from aspiration as well as possible pneumonia. 2. Other portions of the portable chest x-ray are within normal limits for age. Diagnostic code #3 I agree with preliminary report from [facility], finalized on 01/23/19, 10:26 AM Central Time
== END 2019-01-23 18:26 | DRG 439 ==
LOC: JD.ED 22:05 → JD.MS 01-22 04:25
PROVIDERS: ADMIT Family Medicine; ATTEND Family Medicine
DX: K85.90 Acute pancreatitis without necrosis or infection, unspecified (principal); R11.2 Nausea with vomiting, unspecified; K85.10 Biliary acute pancreatitis without necrosis or infection; N17.9 Acute kidney failure, unspecified; K80.00 Calculus of gallbladder with acute cholecystitis without obstruction; K21.9 Gastro-esophageal reflux disease without esophagitis; K59.09 Other constipation; E78.00 Pure hypercholesterolemia, unspecified; E78.5 Hyperlipidemia, unspecified; I50.9 Heart failure, unspecified; N18.9 Chronic kidney disease, unspecified; I25.2 Old myocardial infarction; E66.01 Morbid (severe) obesity due to excess calories; Z68.37 Body mass index [BMI] 37.0-37.9, adult; Z85.828 Personal history of other malignant neoplasm of skin; Z88.6 Allergy status to analgesic agent; Z91.030 Bee allergy status; Z91.040 Latex allergy status; Z88.2 Allergy status to sulfonamides; Z88.8 Allergy status to other drugs, medicaments and biological substances; Z91.048 Other nonmedicinal substance allergy status; Z79.899 Other long term (current) drug therapy; Z98.891 History of uterine scar from previous surgery; Z88.0 Allergy status to penicillin
CPT/HCPCS: 36415; 74022; 74177; 80053; 81001; 82248; 82977; 83690; 84484; 85007; 85027; 85610; 85730; 93005; 96361 ×2; 96374; 96375; 99285; J2405; J3010; J7120 ×2; 71045; 71045-26; 74181; 74181-26; 76705; 76705-26; 80048; 80061; 80076; 82150; 83605; 83735; 83880; 85025; 86140; 93010; 94640; 94760; 94761; A9270-GY; C9113; J1170; J3475; J3490

== ENCOUNTER 2021-04-04 13:46 | Emergency (ER) | payer MEDICARE, OTHER ==
[2021-04-04 14:01] VITALS: BP 160/71; PULSE 90
--- NOTE | 2021-04-04 14:16 | EDM.PDOC ---
ED HPI GENERAL MEDICAL PROBLEM - General Chief Complaint: Lower Extremity Injury/Pain Stated Complaint: POSSIBLE BLOOD CLOT LFT LEG Time Seen by Provider: 04/04/21 13:59 Source of Information: Reports: Patient, RN Notes Reviewed History Limitations: Reports: No Limitations - History of Present Illness INITIAL COMMENTS - FREE TEXT/NARRATIVE: Patient is a 65-year-old female who presents to the ER for the evaluation of left leg swelling. Notes that she has had a history of blood clots in the past, but is not on any blood thinners. States that she noticed this morning, that s ome swelling of her left upper thigh, that seems to extend to her toes. States that it feels warm and painful, and there is no specific area that is more painful than the other. She also states she is having some mild shortness of breath, that started yesterday. She is not having any fevers or chills, cough, any sort of nausea/vomiting/diarrhea. She does also note that there is 3 areas on her thigh, that are concerning for bug bites states these have been present for the past 3 days however, they do not seem to be having any redness that is spreading. Notes that they are itchy and she is trying not to scratch them. She has been using peroxide, and other topical treatments like cortisone for these. Primary care provider is Antonella Garcia, and patient's clinical lab assistant is Liz Brewer from [facility]. - Related Data Allergies Allergy/AdvReac Type Severity Reaction Status Date / Time aspirin Allergy Unknown Cannot Verified 04/04/21 14:01 Remember codeine Allergy Unknown Cannot Verified 04/04/21 14:01 Remember latex Allergy Unknown Cannot Verified 04/04/21 14:01 Remember Penicillins Allergy Unknown Cannot Verified 04/04/21 14:01 Remember Sulfa (Sulfonamide Allergy Unknown Cannot Verified 04/04/21 14:01 Antibiotics) Remember venom-honey bee Allergy Anaphylactic Verified 04/04/21 14:01 [bee venom (honey bee)] Shock procaine HCl [From Novocain] AdvReac Nausea and Verified 04/04/21 14:01 Vomiting molds Allergy Unknown Cannot Uncoded 04/04/21 14:01 Remember downy Allergy Other Uncoded 04/04/21 14:01 Home Meds: Home Meds Albuterol Sulfate [Albuterol Sulfate HFA] 2 puff INH Q4H PRN 09/21/15 [History] Furosemide [Lasix] 20 mg PO DAILY 04/04/21 [History] Montelukast [Singulair] 10 mg PO DAILY 04/04/21 [History] Omeprazole 20 mg PO DAILY 04/04/21 [History] Vitamin D2. 1 tab PO DAILY 04/04/21 [History] atorvaSTATin [Lipitor] 10 mg PO DAILY 04/04/21 [History] Past Medical History Cardiovascular History: Reports: High Cholesterol Other Cardiovascular History: PDA closure at 18 mo of age Respiratory History: Reports: Asthma Gastrointestinal History: Reports: GERD Other Gastrointestinal History: Hx. of Helicobacter pylori Hematologic History: Reports: Other (See Below) (hx/o blood clot) Oncologic (Cancer) History: Reports: Other (See Below) Other Oncologic History: hx of benign breast lump. patient states, "she knows she has skin cancer on her back and legs." she has never been diagnosed with this before. 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 ED EXAM, GENERAL - Physical Exam Exam: See Below Exam Limited By: No Limitations General Appearance: Alert, WD/WN, No Apparent Distress Respiratory/Chest: No Respiratory Distress, Lungs Clear, Normal Breath Sounds, No Accessory Muscle Use, Chest Non-Tender Cardiovascular: Normal Peripheral Pulses, Regular Rate, Rhythm, No Edema Peripheral Pulses: 2+: Radial (L), Radial (R), Dorsalis Pedis (L), Dorsalis Pedis (R) Extremities: Normal Range of Motion, Normal Capillary Refill, Other (there does appear to be some increased mild swelling on her left leg as compared to the right.) Neurological: Alert, Oriented, Normal Cognition, No Motor/Sensory Deficits Psychiatric: Normal Affect, Normal Mood Skin Exam: Warm, Dry, Intact, Normal Color, No Rash, Erythema (There are 3 small areas to patient's left upper thigh that do have the appearance of bug bites.) Course - Vital Signs Last Recorded V/S: Last Vital Signs Temp 98.7 F 04/04/21 13:59 Pulse 90 04/04/21 13:59 Resp 20 04/04/21 13:59 BP 160/71 H 04/04/21 13:59 Pulse Ox 94 L 04/04/21 13:59 - Orders/Labs/Meds Labs: Laboratory Tests 04/04/21 04/04/21 Range/Units 14:25 14:25 WBC 4.78 (3.98-10.04) K/mm3 RBC 5.23 H (3.98-5.22) M/mm3 Hgb 14.7 (11.2-15.7) gm/dl Hct 47.6 H (34.1-44.9) % MCV 91.0 (79.4-94.8) fl MCH 28.1 (25.6-32.2) pg MCHC 30.9 L (32.2-35.5) g/dl RDW Std Deviation 47.1 H (36.4-46.3) fL Plt Count 274 (182-369) K/mm3 MPV 9.3 L (9.4-12.3) fl Neut % (Auto) 56.6 (34.0-71.1) % Lymph % (Auto) 32.0 (19.3-51.7) % [place] % (Auto) 7.7 (4.7-12.5) % Eos % (Auto) 2.9 (0.7-5.8) Baso % (Auto) 0.8 (0.1-1.2) % Neut # (Auto) 2.70 (1.56-6.13) K/mm3 Lymph # (Auto) 1.53 (1.18-3.74) K/mm3 [place] # (Auto) 0.37 H (0.24-0.36) K/mm3 Eos # (Auto) 0.14 (0.04-0.36) K/mm3 Baso # (Auto) 0.04 (0.01-0.08) K/mm3 Sodium 142 (136-145) mEq/L Potassium 4.0 (3.5-5.1) mEq/L Chloride 106 (98-107) mEq/L Carbon Dioxide 28 (21-32) mEq/L Anion Gap 12.0 (5-15) BUN 17 (7-18) mg/dL Creatinine 1.3 H (0.55-1.02) mg/dL Est Cr Clr Drug Dosing 46.65 mL/min Estimated GFR (MDRD) 41 (>60) mL/min BUN/Creatinine Ratio 13.1 L (14-18) Glucose 98 (70-99) mg/dL Calcium 8.7 (8.5-10.1) mg/dL Total Bilirubin 0.7 (0.2-1.0) mg/dL AST 15 (15-37) U/L ALT 21 (14-59) U/L Alkaline Phosphatase 100 (46-116) U/L Total Protein 7.7 (6.4-8.2) g/dl Albumin 3.4 (3.4-5.0) g/dl Globulin 4.3 gm/dL Albumin/Globulin Ratio 0.8 L (1-2) - Re-Assessments/Exams Free Text/Narrative Re-Assessment/Exam: 04/04/21 14:15 Patient presents to the ER for a possible blood clot in her leg, we will go ahead and get ultrasound of the leg, and some basic labs for evaluation. 04/04/21 15:48 Labs are essentially unremarkable, ultrasound demonstrates no sign of DVT within the left leg. I will go relay the information on the patient, and we will have her try to follow-up with her primary care provider, sometime by the end of thi s week if her swelling is not much better. This could be some localized swelling due to the insect bites that she has on her leg. Departure - Departure Time of Disposition: 15:53 Disposition: Home, Self-Care 01 Condition: Good Clinical Impression: Left leg swelling Bug bites Qualifiers: Encounter type: initial encounter Qualified Code(s): W57.XXXA - Bitten or stung by nonvenomous insect and other nonvenomous arthropods, initial encounter - Discharge Information *PRESCRIPTION DRUG MONITORING PROGRAM REVIEWED*: No *COPY OF PRESCRIPTION DRUG MONITORING REPORT IN PATIENT DANA: No Instructions: Insect Bite, Adult, [id number] Referrals: Antonella Garcia NP [Primary Care Provider] - Forms: ED Department Discharge Additional Instructions: You were evaluated in the ER today for possible blood clot in your left lower leg. Ultrasound was performed and demonstrated no blood clot within the left leg. The swelling in your leg could very well be due to the bug bites that you have on your upper thigh, please keep an eye on these, if they start to have any sort of redness spreading from them, and streaks, please have this area looked at sooner rather than later for possible ongoing infection. Go home, rest, raise your legs above the level of your heart to help reduce some of the swelling of the next day or 2 to see if this helps. Recommend you follow-up with your regular care provider, sometime early next week to make sure that the swelling is indeed getting better. Do not hesitate to return to the ER at any time if symptoms change or worsen. Sepsis Event Note (ED) - Evaluation Sepsis Screening Result: No Definite Risk - Focused Exam Vital Signs: Vital Signs Temp Pulse Resp BP Pulse Ox 04/04/21 13:59 98.7 F 90 20 160/71 H 94 L
--- NOTE | 2021-04-04 15:47 | US ---
Left lower extremity deep venous ultrasound: Duplex and color Doppler evaluation was obtained of the left common femoral, proximal greater saphenous, superficial femoral, popliteal, posterior tibial and peroneal veins. Right common femoral vein was also evaluated. Comparison: Prior venous ultrasound study of the left lower extremity dated 03/04/17. Findings: Peroneal vein is not well visualized. Other veins show normal phasic flow, augmentation and compression. Impression: 1. Peroneal vein not well visualized. 2. No findings of deep venous thrombosis is seen within other visualized veins within the left lower extremity or within the right common femoral vein. Diagnostic code #2
== END 2021-04-04 16:06 | disposition home or self-care (01) ==
LOC: JD.ED 13:46
DX: S70.362A Insect bite (nonvenomous), left thigh, initial encounter (principal); K21.9 Gastro-esophageal reflux disease without esophagitis; E78.00 Pure hypercholesterolemia, unspecified; Z88.5 Allergy status to narcotic agent; Z88.0 Allergy status to penicillin; Z88.8 Allergy status to other drugs, medicaments and biological substances; Z88.2 Allergy status to sulfonamides; Z91.048 Other nonmedicinal substance allergy status; Z91.09 Other allergy status, other than to drugs and biological substances; Z91.030 Bee allergy status; Z91.040 Latex allergy status; Z79.899 Other long term (current) drug therapy; W57.XXXA Bitten or stung by nonvenomous insect and other nonvenomous arthropods, initial encounter
CPT/HCPCS: 36415; 80053; 85025; 93971-26-LT; 93971-LT; 99282; 99284-25

== ENCOUNTER 2021-10-02 23:06 | Emergency (ER) | payer MEDICARE, OTHER ==
[2021-10-02 23:18] VITALS: BP 158/59; PULSE 86
== END 2021-10-03 02:45 | disposition home or self-care (01) ==
LOC: JD.ED 23:06
DX: R60.0 Localized edema (principal); I73.9 Peripheral vascular disease, unspecified; Z88.0 Allergy status to penicillin; Z88.5 Allergy status to narcotic agent; Z91.040 Latex allergy status; Z88.2 Allergy status to sulfonamides; Z88.8 Allergy status to other drugs, medicaments and biological substances; Z91.030 Bee allergy status; Z79.899 Other long term (current) drug therapy; Z87.891 Personal history of nicotine dependence
CPT/HCPCS: 93971-26-LT; 93971-LT; 99284-25

== ENCOUNTER 2022-04-04 09:44 | Day surgery (SDC) | payer MEDICARE, OTHER ==
[~2022-04-04 09:44] MED LIST: Cefuroxime 10 MG/ML SYRINGE EYELF SCH; Lidocaine 1% PF 2 ML SDV INJECT SCH; Pilocarpine 4% Ophth Soln 15 ML Bot EYELF SCH; Polymyxin B/Trimethoprim 10 ML Bottle EYELF SCH
[2022-04-04] MEDS: Ofloxacin 0.3% Ophth Soln 5 ML Bottle EYELF SCH ×3 (10:08→12:04)
[2022-04-04] MEDS: Brimonidine 0.2% Ophth Soln 5 ML Bottle EYELF SCH ×3 (10:13→12:04)
[2022-04-04] MEDS: Phenylephrine 2.5% Ophth Soln 2 ML Bot EYELF SCH ×5 (10:17→11:44)
[2022-04-04] MEDS: Tropicamide 1% Ophth Soln 15 ML Bottle EYELF SCH ×5 (10:22→11:35)
[2022-04-04] MEDS: Tetracaine HCl/PF 0.5% 4 ML Bottle EYEBOTH SCH ×3 (11:30→11:52)
[2022-04-04] MEDS ORDERED: Lidocaine 1% with EPINEPHrine 1:100,000 20 ML MDV ONE (11:45)
[2022-04-04 12:21] VITALS: BP 156/75; PULSE 80
== END 2022-04-04 12:20 | disposition home or self-care (01) ==
LOC: JD.SDS 09:44
PROVIDERS: ATTEND Ophthalmology
DX: H25.813 Combined forms of age-related cataract, bilateral (principal); D48.5 Neoplasm of uncertain behavior of skin; H35.3131 Nonexudative age-related macular degeneration, bilateral, early dry stage; H35.373 Puckering of macula, bilateral; H16.223 Keratoconjunctivitis sicca, not specified as Sjogren's, bilateral; H02.834 Dermatochalasis of left upper eyelid; H02.831 Dermatochalasis of right upper eyelid; E78.5 Hyperlipidemia, unspecified; K21.9 Gastro-esophageal reflux disease without esophagitis; D23.122 Other benign neoplasm of skin of left lower eyelid, including canthus; E66.9 Obesity, unspecified; Z79.899 Other long term (current) drug therapy; Z88.8 Allergy status to other drugs, medicaments and biological substances; Z91.040 Latex allergy status; Z88.0 Allergy status to penicillin; Z88.2 Allergy status to sulfonamides; Z88.5 Allergy status to narcotic agent
CPT/HCPCS: 66984; 67840; C1780; J0697; 88305; A9270-GY

== ENCOUNTER 2022-05-02 12:20 | Day surgery (SDC) | payer MEDICARE, OTHER ==
[~2022-05-02 12:20] MED LIST changes: -Cefuroxime 10 MG/ML SYRINGE EYELF SCH; +Cefuroxime 10 MG/ML SYRINGE EYERT SCH; -Pilocarpine 4% Ophth Soln 15 ML Bot EYELF SCH; +Pilocarpine 4% Ophth Soln 15 ML Bot EYERT SCH; -Polymyxin B/Trimethoprim 10 ML Bottle EYELF SCH
[2022-05-02] MEDS: Ofloxacin 0.3% Ophth Soln 5 ML Bottle EYERT SCH ×3 (13:08→14:59)
[2022-05-02] MEDS: Brimonidine 0.2% Ophth Soln 5 ML Bottle EYERT SCH ×3 (13:13→14:59)
[2022-05-02] MEDS: Phenylephrine 2.5% Ophth Soln 2 ML Bot EYERT SCH ×5 (13:18→14:41)
[2022-05-02] MEDS: Tropicamide 1% Ophth Soln 15 ML Bottle EYERT SCH ×4 (13:23→14:03)
[2022-05-02] MEDS: Tetracaine HCl/PF 0.5% 4 ML Bottle EYEBOTH SCH ×2 (14:15→14:48)
[2022-05-02 15:40] VITALS: BP 155/75; PULSE 73
== END 2022-05-02 15:13 | disposition home or self-care (01) ==
LOC: JD.SDS 12:20
PROVIDERS: ATTEND Ophthalmology
DX: H25.811 Combined forms of age-related cataract, right eye (principal); H35.373 Puckering of macula, bilateral; M19.90 Unspecified osteoarthritis, unspecified site; J45.909 Unspecified asthma, uncomplicated; E66.9 Obesity, unspecified; E78.00 Pure hypercholesterolemia, unspecified; I82.402 Acute embolism and thrombosis of unspecified deep veins of left lower extremity; K21.9 Gastro-esophageal reflux disease without esophagitis; Z98.890 Other specified postprocedural states; Z96.1 Presence of intraocular lens; Z88.0 Allergy status to penicillin; Z91.040 Latex allergy status; Z79.02 Long term (current) use of antithrombotics/antiplatelets; Z79.52 Long term (current) use of systemic steroids; Z79.51 Long term (current) use of inhaled steroids; Z88.6 Allergy status to analgesic agent; Z88.2 Allergy status to sulfonamides; Z68.33 Body mass index [BMI] 33.0-33.9, adult; Z88.5 Allergy status to narcotic agent; Z86.16 Personal history of COVID-19; Z90.49 Acquired absence of other specified parts of digestive tract
CPT/HCPCS: A9270-GY; C1780; J0697

== ENCOUNTER 2022-12-26 18:53 | Emergency (ER) | payer MEDICARE, OTHER ==
[2022-12-26 19:18] VITALS: BP 148/74; PULSE 80
== END 2022-12-26 22:30 | disposition home or self-care (01) ==
LOC: JD.ED 18:53
DX: M79.89 Other specified soft tissue disorders (principal); E78.00 Pure hypercholesterolemia, unspecified; J45.909 Unspecified asthma, uncomplicated; K21.9 Gastro-esophageal reflux disease without esophagitis; Z88.6 Allergy status to analgesic agent; Z88.0 Allergy status to penicillin; Z91.040 Latex allergy status; Z88.5 Allergy status to narcotic agent; Z88.2 Allergy status to sulfonamides; Z91.030 Bee allergy status; Z91.048 Other nonmedicinal substance allergy status; Z86.16 Personal history of COVID-19
CPT/HCPCS: 36415; 80053; 83880; 85025; 93971-26-LT; 93971-LT; 99283; 99284

== ENCOUNTER 2023-01-07 00:24 | Emergency (ER) | payer MEDICARE, OTHER ==
[2023-01-07 00:40] VITALS: BP 168/69; PULSE 96
[2023-01-07] MEDS ORDERED: Amoxicillin/Clavulanate K 875-125 MG Tab PO STA (03:24)
[2023-01-07] MEDS ORDERED: Azithromycin 250 MG Tab PO STA (03:25)
== END 2023-01-07 03:58 | disposition home or self-care (01) ==
LOC: JD.ED 00:24
DX: J18.9 Pneumonia, unspecified organism (principal); E78.00 Pure hypercholesterolemia, unspecified; K21.9 Gastro-esophageal reflux disease without esophagitis; E66.9 Obesity, unspecified; Z87.891 Personal history of nicotine dependence; Z68.32 Body mass index [BMI] 32.0-32.9, adult; Z88.5 Allergy status to narcotic agent; Z91.040 Latex allergy status; Z88.2 Allergy status to sulfonamides; Z91.030 Bee allergy status; Z88.8 Allergy status to other drugs, medicaments and biological substances; Z91.048 Other nonmedicinal substance allergy status; Z79.899 Other long term (current) drug therapy
CPT/HCPCS: 36415; 36600; 71046; 80053; 82803; 83605; 83880; 84484; 85007; 85027; 85379; 87040; 93005; 99285; A9270; 93010; 99284

== ENCOUNTER 2023-01-11 16:52 | Emergency (ER) | payer MEDICARE, OTHER ==
[2023-01-11] MEDS ORDERED: methylPREDNISolone Sodium Succinate 125 MG/2 ML SDV IVPUSH ONE (17:15)
[2023-01-11] MEDS ORDERED: diphenhydrAMINE 50 MG/ML SDV IVPUSH ONE (17:15)
[2023-01-11] MEDS ORDERED: Famotidine 20 MG/2 ML SDV IVPUSH ONE (17:15)
[2023-01-11] MEDS ORDERED: Sodium Chloride 0.9% 1,000 ML IV ONE (17:15)
[2023-01-11] MEDS ORDERED: Sodium Chloride 0.9% 10 ML Syringe FLUSH PRN (17:15)
[2023-01-11 18:11] LABS: BASOPHILS ABSOLUTE AUTO 0.05 K/mm3 (0.01-0.08); BASOPHILS PERCENT AUTO 0.9 % (0.1-1.2); EOSINOPHILS ABSOLUTE AUTO 0.21 K/mm3 (0.04-0.36); EOSINOPHILS PERCENT AUTO 3.7 (0.7-5.8); HEMATOCRIT 49.1 % (34.1-44.9); HEMOGLOBIN 15.1 gm/dl (11.2-15.7); IMMATURE GRAN ABSOLUTE AUTO 0.01 K/mm3 (0.00-0.10); IMMATURE GRAN PERCENT AUTO 0.2 % (<=1.0); LYMPHOCYTES ABSOLUTE AUTO 1.52 K/mm3 (1.18-3.74); LYMPHOCYTES PERCENT AUTO 26.7 % (19.3-51.7); MEAN CORPUSCULAR HEMOGLOBIN 28.5 pg (25.6-32.2); MEAN CORPUSCULAR HGB CONC 30.8 g/dl (32.2-35.5); MEAN CORPUSCULAR VOLUME 92.6 fl (79.4-94.8); MEAN PLATELET VOLUME 9.8 fl (9.4-12.3); MONOCYTES ABSOLUTE AUTO 0.58 K/mm3 (0.24-0.36); MONOCYTES PERCENT AUTO 10.2 % (4.7-12.5); NEUTROPHILS ABSOLUTE AUTO 3.33 K/mm3 (1.56-6.13); NEUTROPHILS PERCENT AUTO 58.3 % (34.0-71.1); PLATELET COUNT,PLT 259 K/mm3 (182-369)
[2023-01-11 18:27] LABS: A/G RATIO 0.7 (1-2); ALANINE AMINOTRANSFERASE,ALT 23 U/L (14-59); ALBUMIN 3.2 g/dl (3.4-5.0); ALKALINE PHOSPHATASE 74 U/L (46-116); BILIRUBIN TOTAL 0.7 mg/dL (0.2-1.0); BLOOD UREA NITROGEN,BUN 12 mg/dL (7-18); C-REACTIVE PROTEIN 2.2 mg/dL (<1.0); CALCIUM 8.8 mg/dL (8.5-10.1); CARBON DIOXIDE,CO2 30 mEq/L (21-32); CHLORIDE,CL 105 mEq/L (98-107); EST CRCL DRUG DOSING (CG) 61.02 mL/min; ESTIMATED GFR 62 mL/min (>60); GLUCOSE RANDOM 92 mg/dL (70-99); PROTEIN TOTAL,TP 7.9 g/dl (6.4-8.2); SODIUM,NA 143 mEq/L (136-145)
[2023-01-11 18:30] LABS: ASPARTATE AMNIOTRANSFERASE,AST 27 U/L (15-37)
[2023-01-11 18:47] LABS: CORONAVIRUS COVID-19 NAA NEGATIVE (NEGATIVE); INFLUENZA A NAA NEGATIVE (NEGATIVE); RESPIRATORY SYNCYTIAL VIR NAA NEGATIVE (NEGATIVE)
[2023-01-11 19:19] VITALS: BP 153/71; PULSE 76
== END 2023-01-11 19:35 | disposition home or self-care (01) ==
LOC: JD.ED 16:52
DX: J18.9 Pneumonia, unspecified organism (principal); T36.0X5A Adverse effect of penicillins, initial encounter; T36.3X5A Adverse effect of macrolides, initial encounter; E78.00 Pure hypercholesterolemia, unspecified; K21.9 Gastro-esophageal reflux disease without esophagitis; E66.9 Obesity, unspecified; Z68.35 Body mass index [BMI] 35.0-35.9, adult; Z88.1 Allergy status to other antibiotic agents; Z88.8 Allergy status to other drugs, medicaments and biological substances; Z88.5 Allergy status to narcotic agent; Z91.040 Latex allergy status; Z88.0 Allergy status to penicillin; Z88.2 Allergy status to sulfonamides; Z91.030 Bee allergy status; Z88.4 Allergy status to anesthetic agent; Z91.048 Other nonmedicinal substance allergy status; Z79.899 Other long term (current) drug therapy; Z20.822 Contact with and (suspected) exposure to COVID-19
CPT/HCPCS: 0241U; 36415; 71046; 71046-26; 80053; 85025; 86140; 86738; 96361; 96374; 96375; 99283-25; 99284; J1200; J2930; J3490; J7030

== ENCOUNTER 2025-02-16 20:49 | Inpatient (IN) | payer MEDICARE, OTHER ==
[2025-02-16] MEDS ORDERED: Sodium Chloride 0.9% 10 ML Syringe FLUSH PRN (21:20)
[2025-02-16 21:53] LABS: BASOPHILS PERCENT AUTO 0.9 % (0.0-1.0); EOSINOPHILS PERCENT AUTO 0.9 % (0.0-6.0); HEMATOCRIT 51.5 % (37.0-47.0); HEMOGLOBIN 16.3 gm/dl (12.0-16.0); IMMATURE GRAN ABSOLUTE AUTO 0.01 K/mm3 (0.00-0.05); IMMATURE GRAN PERCENT AUTO 0.2 % (0.0-0.4); LYMPHOCYTES ABSOLUTE AUTO 0.5 K/mm3 (1.0-4.8); LYMPHOCYTES PERCENT AUTO 12.1 % (24.0-44.0); MEAN CORPUSCULAR HEMOGLOBIN 29.3 pg (28.0-32.0); MEAN CORPUSCULAR HGB CONC 31.7 g/dl (32.0-36.0); MEAN CORPUSCULAR VOLUME 92.5 fl (83.0-99.0); MEAN PLATELET VOLUME 9.4 fl (9.4-12.3); MONOCYTES ABSOLUTE AUTO 0.6 K/mm3 (0.0-0.8); MONOCYTES PERCENT AUTO 14.4 % (0.0-8.0); NEUTROPHILS ABSOLUTE AUTO 3.1 K/mm3 (1.8-7.7); NEUTROPHILS PERCENT AUTO 71.5 % (41.0-71.0); PLATELET COUNT,PLT 197 K/mm3 (150-400); RED BLOOD CELL COUNT 5.57 M/mm3 (4.10-5.30); WHITE BLOOD CELL COUNT,WBC 4.31 K/mm3 (3.9-11.3)
[2025-02-16] MEDS: Sodium Chloride 0.9% 1,000 ML IV ONE (22:01)
[2025-02-16 22:18] LABS: A/G RATIO 0.8 (1-2); ALBUMIN 3.3 g/dl (3.4-5.0); ANION GAP 12.9 (5-15); BUN/CREATININE RATIO 10.9 (14-18); CALCIUM 8.9 mg/dL (8.5-10.1); CREATININE 1.1 mg/dL (0.55-1.02); EST CRCL DRUG DOSING (CG) 52.2 mL/min; MAGNESIUM 1.8 mg/dL (1.8-2.4); POTASSIUM,K 3.9 mEq/L (3.5-5.1); PROTEIN TOTAL,TP 7.7 g/dl (6.4-8.2)
[2025-02-16] MEDS: Iopamidol 612 MG/ML 100 ML Bottle IVPUSH ONE (22:32)
[2025-02-17] MEDS ORDERED: Clindamycin HCl 150 MG Cap PO SCH (00:45)
[2025-02-17] MEDS: Clindamycin Phosphate in D5W 600 MG in Premix Bag 1 BAG IV ONE (01:05)
[2025-02-17 05:05] LABS: APPEARANCE,URINE CLEAR (Clear); BILIRUBIN,URINE NEGATIVE (Negative); COLOR,URINE YELLOW (Yellow); GLUCOSE,URINE NEGATIVE (Negative); KETONES,URINE NEGATIVE (Negative); LEUKOCYTE ESTERASE,URINE NEGATIVE (Negative); NITRITE,URINE NEGATIVE (Negative); OCCULT BLOOD,URINE NEGATIVE (Negative); PH,URINE 5.5 (5.0-8.0); PROTEIN,URINE 1+ (Negative)
[2025-02-17 05:49] LABS: BACTERIA,URINE FEW /hpf (FEW); MUCUS,URINE FEW /hpf (FEW); RBC,URINE 0-5 /hpf (0-5); WBC,URINE 0-5 /hpf (0-5)
[2025-02-17] MEDS ORDERED: Docusate Sodium 100 MG Cap PO PRN (14:31)
[2025-02-17] MEDS ORDERED: Polyethylene Glycol 3350 Powder 17 GM Packet PO PRN (14:31)
[2025-02-17] MEDS ORDERED: Ondansetron 4 MG/2 ML SDV IV PRN (14:31)
[2025-02-17] MEDS ORDERED: Ondansetron 4 MG Tab.DIS PO PRN (14:31)
[2025-02-17] MEDS: Clindamycin Phosphate in D5W 600 MG in Premix Bag 1 BAG IV SCH (15:24)
[2025-02-17] MEDS: Acetaminophen 325 MG Tab PO PRN (15:24)
[2025-02-18 05:36] LABS: BASOPHILS PERCENT AUTO 1.1 % (0.0-1.0); EOSINOPHILS ABSOLUTE AUTO 0.1 K/mm3 (0.0-0.4); EOSINOPHILS PERCENT AUTO 2.4 % (0.0-6.0); HEMATOCRIT 53.4 % (37.0-47.0); HEMOGLOBIN 16.6 gm/dl (12.0-16.0); IMMATURE GRAN ABSOLUTE AUTO 0.01 K/mm3 (0.00-0.05); IMMATURE GRAN PERCENT AUTO 0.3 % (0.0-0.4); LYMPHOCYTES ABSOLUTE AUTO 0.7 K/mm3 (1.0-4.8); LYMPHOCYTES PERCENT AUTO 17.2 % (24.0-44.0); MEAN CORPUSCULAR HEMOGLOBIN 28.9 pg (28.0-32.0); MEAN CORPUSCULAR HGB CONC 31.1 g/dl (32.0-36.0); MONOCYTES ABSOLUTE AUTO 0.6 K/mm3 (0.0-0.8); MONOCYTES PERCENT AUTO 14.9 % (0.0-8.0); NEUTROPHILS ABSOLUTE AUTO 2.4 K/mm3 (1.8-7.7); NEUTROPHILS PERCENT AUTO 64.1 % (41.0-71.0); PLATELET COUNT,PLT 188 K/mm3 (150-400); RED BLOOD CELL COUNT 5.74 M/mm3 (4.10-5.30); WHITE BLOOD CELL COUNT,WBC 3.77 K/mm3 (3.9-11.3)
[2025-02-18 05:52] LABS: A/G RATIO 0.7 (1-2); ALBUMIN 3.3 g/dl (3.4-5.0); BILIRUBIN TOTAL 0.8 mg/dL (0.2-1.0); C-REACTIVE PROTEIN 2.61 mg/dL (<0.30); CALCIUM 9.2 mg/dL (8.5-10.1); EST CRCL DRUG DOSING (CG) 57.42 mL/min; PROTEIN TOTAL,TP 7.8 g/dl (6.4-8.2)
[2025-02-18] MEDS: Azithromycin 500 MG in Sodium Chloride 0.9% 250 ML IV SCH (08:28)
[2025-02-18] MEDS: Enoxaparin 40 MG/0.4 ML Syringe SUBCUT SCH (08:28)
[2025-02-18] MEDS: cefTRIAXone 1 GM Vial IVPUSH SCH (08:28)
[2025-02-18] MEDS: Albuterol/Ipratropium 3.0-0.5 MG/3 ML Neb Soln NEB PRN (13:19)
[2025-02-18] MEDS: Albuterol/Ipratropium 3.0-0.5 MG/3 ML Neb Soln NEB SCH (17:24)
[2025-02-18] MEDS: Furosemide 20 MG Tab PO SCH (18:18)
[2025-02-18] MEDS: Montelukast 10 MG Tab PO SCH (21:43)
[2025-02-19 05:55] LABS: BASOPHILS PERCENT AUTO 1.1 % (0.0-1.0); EOSINOPHILS ABSOLUTE AUTO 0.2 K/mm3 (0.0-0.4); EOSINOPHILS PERCENT AUTO 4.8 % (0.0-6.0); HEMATOCRIT 48.5 % (37.0-47.0); LYMPHOCYTES ABSOLUTE AUTO 1.3 K/mm3 (1.0-4.8); MEAN CORPUSCULAR HEMOGLOBIN 28.9 pg (28.0-32.0); MEAN CORPUSCULAR HGB CONC 31.1 g/dl (32.0-36.0); MEAN CORPUSCULAR VOLUME 92.7 fl (83.0-99.0); MEAN PLATELET VOLUME 9.6 fl (9.4-12.3); MONOCYTES ABSOLUTE AUTO 0.6 K/mm3 (0.0-0.8); MONOCYTES PERCENT AUTO 15.5 % (0.0-8.0); NEUTROPHILS ABSOLUTE AUTO 1.5 K/mm3 (1.8-7.7); NEUTROPHILS PERCENT AUTO 41.6 % (41.0-71.0); PLATELET COUNT,PLT 167 K/mm3 (150-400); RED BLOOD CELL COUNT 5.23 M/mm3 (4.10-5.30); WHITE BLOOD CELL COUNT,WBC 3.54 K/mm3 (3.9-11.3)
[2025-02-19 05:57] LABS: HEMOGLOBIN 15.1 gm/dl (12.0-16.0)
[2025-02-19 06:09] LABS: A/G RATIO 0.7 (1-2); ALBUMIN 2.8 g/dl (3.4-5.0); ANION GAP 11.5 (5-15); BILIRUBIN TOTAL 0.6 mg/dL (0.2-1.0); C-REACTIVE PROTEIN 2.19 mg/dL (<0.30); CALCIUM 8.7 mg/dL (8.5-10.1); EST CRCL DRUG DOSING (CG) 57.42 mL/min; MAGNESIUM 1.9 mg/dL (1.8-2.4); PHOSPHORUS 4.7 mg/dL (2.6-4.7); POTASSIUM,K 3.5 mEq/L (3.5-5.1); PROTEIN TOTAL,TP 6.7 g/dl (6.4-8.2)
[2025-02-19] MEDS: atorvaSTATin 20 MG Tab PO SCH (09:20)
[2025-02-19] MEDS: Benzonatate 100 MG Cap PO PRN (16:03)
[2025-02-19] MEDS: Albuterol/Ipratropium 3.0-0.5 MG/3 ML Neb Soln NEB SCH (20:13)
[2025-02-20 05:52] LABS: EOSINOPHILS ABSOLUTE AUTO 0.2 K/mm3 (0.0-0.4); EOSINOPHILS PERCENT AUTO 5.8 % (0.0-6.0); HEMATOCRIT 46.4 % (37.0-47.0); HEMOGLOBIN 14.6 gm/dl (12.0-16.0); LYMPHOCYTES ABSOLUTE AUTO 1.8 K/mm3 (1.0-4.8); LYMPHOCYTES PERCENT AUTO 45.9 % (24.0-44.0); MEAN CORPUSCULAR HGB CONC 31.5 g/dl (32.0-36.0); MEAN CORPUSCULAR VOLUME 92.1 fl (83.0-99.0); MEAN PLATELET VOLUME 9.5 fl (9.4-12.3); MONOCYTES ABSOLUTE AUTO 0.4 K/mm3 (0.0-0.8); MONOCYTES PERCENT AUTO 10.5 % (0.0-8.0); NEUTROPHILS ABSOLUTE AUTO 1.4 K/mm3 (1.8-7.7); NEUTROPHILS PERCENT AUTO 36.8 % (41.0-71.0); PLATELET COUNT,PLT 174 K/mm3 (150-400); RED BLOOD CELL COUNT 5.04 M/mm3 (4.10-5.30); WHITE BLOOD CELL COUNT,WBC 3.81 K/mm3 (3.9-11.3)
[2025-02-20 06:13] LABS: A/G RATIO 0.7 (1-2); ALBUMIN 2.8 g/dl (3.4-5.0); ANION GAP 10.4 (5-15); BILIRUBIN TOTAL 0.6 mg/dL (0.2-1.0); C-REACTIVE PROTEIN 1.9 mg/dL (<0.30); EST CRCL DRUG DOSING (CG) 57.42 mL/min; MAGNESIUM 1.9 mg/dL (1.8-2.4); POTASSIUM,K 3.4 mEq/L (3.5-5.1); PROTEIN TOTAL,TP 6.7 g/dl (6.4-8.2)
[2025-02-20] MEDS: Potassium Chloride 20 MEQ Tab.ER PO ONE (11:10)
[2025-02-20] MEDS ORDERED: predniSONE 10 MG Tab PO ONE (16:02)
[2025-02-20] MEDS: predniSONE 20 MG Tab PO ONE (16:21)
[2025-02-21 06:44] LABS: ANION GAP 11.4 (5-15); BUN/CREATININE RATIO 23.8 (14-18); CALCIUM 9.3 mg/dL (8.5-10.1); CREATININE 0.8 mg/dL (0.55-1.02); EST CRCL DRUG DOSING (CG) 71.77 mL/min; POTASSIUM,K 4.4 mEq/L (3.5-5.1)
[2025-02-21] MEDS: predniSONE 20 MG Tab PO SCH (07:59)
[2025-02-21 13:27] VITALS: BP 152/67; PULSE 92
== END 2025-02-21 13:40 | disposition home or self-care (01) | DRG 193 ==
LOC: JD.ED 20:49 → JD.MS 02-17 14:31
PROVIDERS: ADMIT Student in an Organized Health Care Education/Training Program; ATTEND Student in an Organized Health Care Education/Training Program
DX: J18.9 Pneumonia, unspecified organism (principal); R10.84 Generalized abdominal pain; R11.2 Nausea with vomiting, unspecified; R19.7 Diarrhea, unspecified; J96.01 Acute respiratory failure with hypoxia; J45.909 Unspecified asthma, uncomplicated; J45.901 Unspecified asthma with (acute) exacerbation; H54.7 Unspecified visual loss; E78.00 Pure hypercholesterolemia, unspecified; K21.9 Gastro-esophageal reflux disease without esophagitis; M19.90 Unspecified osteoarthritis, unspecified site; Z88.8 Allergy status to other drugs, medicaments and biological substances; E66.9 Obesity, unspecified; I25.10 Atherosclerotic heart disease of native coronary artery without angina pectoris; Z87.81 Personal history of (healed) traumatic fracture; Z87.74 Personal history of (corrected) congenital malformations of heart and circulatory system; Z85.828 Personal history of other malignant neoplasm of skin; Z88.0 Allergy status to penicillin; Z86.718 Personal history of other venous thrombosis and embolism; Z88.6 Allergy status to analgesic agent; Z88.5 Allergy status to narcotic agent; Z91.040 Latex allergy status; Z88.2 Allergy status to sulfonamides; Z91.048 Other nonmedicinal substance allergy status; Z88.4 Allergy status to anesthetic agent; Z91.030 Bee allergy status; Z79.899 Other long term (current) drug therapy; Z86.16 Personal history of COVID-19; Z90.89 Acquired absence of other organs; Z90.49 Acquired absence of other specified parts of digestive tract; Z68.34 Body mass index [BMI] 34.0-34.9, adult
CPT/HCPCS: 36415; 71045; 74177; 80053; 81001; 83690; 83735; 85025; 93005; 96361; 96365; 99284; J0736; J7030; Q9967; 80048; 84100; 86140; 94640; 94668; 94760; 94761; 97112-GP; 97116-GP; 97161-GP; 97530-GP; 99222; 99231; 99232; 99239; A9270-GY; J0456; J0696; J1650; J7050; J7512